=== PATIENT | female | born 1970 | race Caucasian/White ===

== ENCOUNTER 2017-12-03 23:57 | Inpatient (IN) | payer OTHER ==
[2017-12-04] MEDS ORDERED: SODIUM CHLORIDE 1,000 ML IV STA (00:20)
[2017-12-04] MEDS ORDERED: ONDANSETRON 4 MG/2 ML VIAL IVPB ONE (00:20)
[2017-12-04] MEDS ORDERED: ACETAMINOPHEN 1000 MG/100 ML VIAL (NON FORMULARY) IVPB ONE (00:20)
--- NOTE | 2017-12-04 00:27 | PDOC ---
History of Present Illness - General Chief Complaint: Pain, Acute Stated Complaint: STOMACH PAIN Time Seen by Provider: 12/04/17 00:07 - History of Present Illness Initial Comments: 12/04/17 00:22 47 F with no PMH presents to ED with abdominal pain, N+V+D x 1 day. Pt states that her symptoms began at 2PM. She reports diffuse abdominal pain. Endorses nonbloody nonbilious emesis as well as watery brown diarrhea. Denies F/C. Denies CP/SOB. Denies dysuria. Denies vaginal bleeding/discharge. Pt has had prior cholecystectomy. Past History - Past Medical History Allergies/Adverse Reactions: Allergies Allergy/AdvReac Type Severity Reaction Status Date / Time No Known Allergies Allergy Verified 12/04/17 00:15 Home Medications: Ambulatory Orders Oxycodone HCl/Acetaminophen [Percocet 5-325 mg Tablet] 1 - 2 tab PO Q6H - Surgical History Cholecystectomy: Yes - Suicide/Smoking/Psychosocial Hx Smoking Status: Yes Smoking History: Never smoked Have you smoked in the past 12 months: No Number of Cigarettes Smoked Daily: 2 Information on smoking cessation initiated: No Hx Alcohol Use: No Drug/Substance Use Hx: No Review of Systems - Review of Systems Comments:: 12/04/17 00:25 "GENERAL/CONSTITUTIONAL: No fever or chills. No weakness. HEAD, EYES, EARS, NOSE AND THROAT: No change in vision. No ear pain or discharge. No sore throat. CARDIOVASCULAR: No chest pain or shortness of breath. RESPIRATORY: No cough, wheezing, or hemoptysis. GASTROINTESTINAL: + nausea, vomiting, and diarrhea, no constipation. GENITOURINARY: No dysuria, frequency, or change in urination. MUSCULOSKELETAL: No joint or muscle swelling or pain. No neck or back pain. SKIN: No rash NEUROLOGIC: No headache, vertigo, loss of consciousness, or change in strength/ sensation. ENDOCRINE: No increased thirst. No abnormal weight change. HEMATOLOGIC/LYMPHATIC: No anemia, easy bleeding, or history of blood clots. ALLERGIC/IMMUNOLOGIC: No hives or skin allergy. " *Physical Exam - Vital Signs Last Vital Signs Temp Pulse Resp BP Pulse Ox 98.2 F 87 20 131/81 98 12/04/17 00:15 12/04/17 00:15 12/04/17 00:15 12/04/17 00:15 12/04/17 00:15 - Physical Exam Comments: 12/04/17 00:25 "GENERAL: Awake, alert, and fully oriented, in no acute distress HEAD: No signs of trauma EYES: PERRLA, EOMI, sclera anicteric, conjunctiva clear ENT: Auricles normal inspection, hearing grossly normal, nares patent, oropharynx clear without exudates. Moist mucosa NECK: Nontender, no stepoffs, Normal ROM, supple, no lymphadenopathy, JVD, or masses LUNGS: Breath sounds equal, clear to auscultation bilaterally. No wheezes, and no crackles HEART: Regular rate and rhythm, normal S1 and S2, no murmurs, rubs or gallops ABDOMEN: Soft, mild LLQ and RLQ tenderness, normoactive bowel sounds. No guarding, no rebound. No masses EXTREMITIES: Normal range of motion, no edema. No clubbing or cyanosis. No cords, erythema, or tenderness NEUROLOGICAL: Cranial nerves II through XII intact. 5/5 strength and sensation in all extremities, Normal speech, normal gait, normal cerebellar function SKIN: Warm, Dry, normal turgor, no rashes or lesions noted. " ED Treatment Course - LABORATORY CBC & Chemistry Diagram: 12/04/17 01:21 12/04/17 01:21 - RADIOLOGY Radiology Studies Ordered: Category Date Time Status ABDOMEN & PELVIS CT WITH CONTR [CT] Stat CT Scan 12/04/17 00:19 Ordered Medical Decision Making - Medical Decision Making 12/04/17 00:26 47 F with abdominal pain, N+V+D. Likely viral gastroenteritis. However, because pt had RLQ and LLQ tenderness on exam, will obtain CT to r/o appy or colitis. - Labs, UA, UPT - CTAP - IVF, zofran 12/04/17 01:54 Pt signed out to night attending at 2AM, pending labs, CT scan, and re- assessment. Case discussed in detail with oncoming Emergency Physician including history, physical exam and ancillary studies. Oncoming Emergency Physician has assumed care for the patient and will complete the evaluation and treatment. Patient is aware of the plan. *DC/Admit/Observation/Transfer Diagnosis at time of Disposition: Abdominal pain - Referrals - Patient Instructions - Post Discharge Activity - Attestations Physician Attestion: 12/04/17 01:55 I, Dr. Noel Patterson MD, attest that this document has been prepared under my direction and personally reviewed by me in its entirety. I further attest, that it accurately reflects all work, treatment, procedures and medical decision -making performed by me.
[2017-12-04] MEDS ORDERED: ACETAMINOPHEN INJECTION 100 ML IVPB ONE (01:06)
[2017-12-04] MEDS ORDERED: ONDANSETRON 4 MG/2 ML VIAL ONE (01:06)
[2017-12-04 01:32] LABS: HEMATOCRIT 43.1 % (32.4-45.2); HEMOGLOBIN 14.3 GM/dL (10.7-15.3); MCH 30.8 pg (25.7-33.7); MCHC 33.1 g/dl (32.0-36.0); MEAN PLT VOLUME 10.2 fl (7.5-11.1); PLATELET COUNT 316 K/MM3 (134-434); RBC 4.64 M/mm3 (3.60-5.2); RDW 14.2 % (11.6-15.6); WHITE BLOOD COUNT 21.1 K/mm3 (4.0-10.0)
[2017-12-04 01:48] LABS: URINE APPEARANCE CLEAR; URINE BILIRUBIN NEGATIVE (NEGATIVE); URINE BLOOD NEGATIVE (NEGATIVE); URINE COLOR YELLOW; URINE GLUCOSE (UA) NEGATIVE (NEGATIVE); URINE KETONE NEGATIVE (NEGATIVE); URINE LEUK ESTERASE NEGATIVE (NEGATIVE); URINE NITRITE NEGATIVE (NEGATIVE); URINE PROTEIN NEGATIVE (NEGATIVE); URINE UROBILINOGEN NEGATIVE mg/dL (0.2-1.0)
[2017-12-04 01:51] LABS: HCG,QUALITATIVE URINE NEGATIVE
[2017-12-04 02:54] LABS: ALK PHOS 68 U/L (45-117); ANION GAP 10 (8-16); BILIRUBIN,TOTAL 0.4 mg/dL (0.2-1.0); BLOOD UREA NITROGEN 9 mg/dL (7-18); CALCIUM 8.3 mg/dL (8.5-10.1); CHLORIDE 102 mmol/L (98-107); CO2 26 mmol/L (21-32); CREATININE 0.6 mg/dL (0.55-1.02); GLUCOSE,RANDOM 94 mg/dL (74-106); POTASSIUM 4.3 mmol/L (3.5-5.1); SGOT/AST 24 U/L (15-37); SGPT/ALT 21 U/L (12-78); SODIUM 138 mmol/L (136-145); TOT PROT 7.2 g/dl (6.4-8.2)
[2017-12-04 03:45] LABS: ACANTHOCYTES 0; ANISOCYTOSIS 0; HELMET CELLS 0; HOWELL-JOLLY BODIES 0; MACROCYTOSIS 0; OVALOCYTE 0; PLATELET ESTIMATE NORMAL; ROULEAU 0; SICKELED CELLS 0; TARGET CELLS 0; TEAR DROP CELLS 0; TOXIC GRANULATION 0
--- NOTE | 2017-12-04 04:06 | PDOC ---
*Physical Exam - Vital Signs Last Vital Signs Temp Pulse Resp BP Pulse Ox 98.2 F 87 20 131/81 98 12/04/17 00:15 12/04/17 00:15 12/04/17 00:15 12/04/17 00:15 12/04/17 00:15 <Nael Perez - Last Filed: 12/04/17 04:06> - Vital Signs Last Vital Signs Temp Pulse Resp BP Pulse Ox 98.2 F 87 20 131/81 98 12/04/17 00:15 12/04/17 00:15 12/04/17 00:15 12/04/17 00:15 12/04/17 00:15 <Vickie Macario - Last Filed: 12/04/17 05:22> Heart Score/ECG Review - ECG Intrepretation Comment:: 12/04/17 04:24 Vent Rate: 81 bpm IMPRESSION: Normal sinus rhythm. Possible left atrial enlargement. <Vickie Macario - Last Filed: 12/04/17 05:22> ED Treatment Course - LABORATORY CBC & Chemistry Diagram: 12/04/17 01:21 12/04/17 02:18 - ADDITIONAL ORDERS Additional order review: Laboratory Results 12/04/17 12/04/17 12/04/17 02:18 01:21 01:21 Sodium 138 Cancelled Potassium 4.3 Cancelled Chloride 102 Cancelled Carbon Dioxide 26 Cancelled Anion Gap 10 Cancelled BUN 9 Cancelled Creatinine 0.6 Cancelled Creat Clearance w eGFR > 60 Cancelled Random Glucose 94 Cancelled Calcium 8.3 L Cancelled Total Bilirubin 0.4 Cancelled AST 24 Cancelled ALT 21 Cancelled Alkaline Phosphatase 68 Cancelled Total Protein 7.2 Cancelled Albumin 3.0 L Cancelled Lipase 72 L Urine Color Urine Appearance Urine pH Ur Specific [place] Urine Protein Urine Glucose (UA) Urine Ketones Urine Blood Urine Nitrite Urine Bilirubin Urine Urobilinogen Ur Leukocyte Esterase Urine HCG, Qual 12/04/17 01:21 Sodium Potassium Chloride Carbon Dioxide Anion Gap BUN Creatinine Creat Clearance w eGFR Random Glucose Calcium Total Bilirubin AST ALT Alkaline Phosphatase Total Protein Albumin Lipase Urine Color Yellow Urine Appearance Clear Urine pH 5.0 Ur Specific [place] 1.025 Urine Protein Negative Urine Glucose (UA) Negative Urine Ketones Negative Urine Blood Negative Urine Nitrite Negative Urine Bilirubin Negative Urine Urobilinogen Negative Ur Leukocyte Esterase Negative Urine HCG, Qual Negative 12/04/17 01:21 RBC 4.64 MCV 93.0 MCHC 33.1 RDW 14.2 MPV 10.2 Neutrophils % No Result Required. Lymphocytes % No Result Required. - Medications Given in the ED: ED Medications Discontinued Medications Generic Name Dose Route Start Last Admin Trade Name Dong PRN Reason Stop Dose Admin Acetaminophen 1,000 mg 12/04/17 00:20 12/04/17 01:42 Ofirmev Injection - IVPB 12/04/17 00:21 1,000 mg ONCE ONE Administration Sodium Chloride 1,000 mls @ 1,000 mls/hr 12/04/17 00:20 12/04/17 01:41 Normal Saline - IV 12/04/17 01:19 1,000 mls/hr ASDIR STA Administration Ondansetron HCl 4 mg 12/04/17 00:20 12/04/17 01:42 Zofran Injection IVPB 12/04/17 00:21 4 mg ONCE ONE Administration <Nael Perez - Last Filed: 12/04/17 04:06> - LABORATORY CBC & Chemistry Diagram: 12/04/17 01:21 12/04/17 02:18 - ADDITIONAL ORDERS Additional order review: Laboratory Results 12/04/17 12/04/17 12/04/17 02:18 01:21 01:21 Sodium 138 Cancelled Potassium 4.3 Cancelled Chloride 102 Cancelled Carbon Dioxide 26 Cancelled Anion Gap 10 Cancelled BUN 9 Cancelled Creatinine 0.6 Cancelled Creat Clearance w eGFR > 60 Cancelled Random Glucose 94 Cancelled Calcium 8.3 L Cancelled Total Bilirubin 0.4 Cancelled AST 24 Cancelled ALT 21 Cancelled Alkaline Phosphatase 68 Cancelled Total Protein 7.2 Cancelled Albumin 3.0 L Cancelled Lipase 72 L Urine Color Urine Appearance Urine pH Ur Specific [place] Urine Protein Urine Glucose (UA) Urine Ketones Urine Blood Urine Nitrite Urine Bilirubin Urine Urobilinogen Ur Leukocyte Esterase Urine HCG, Qual 12/04/17 01:21 Sodium Potassium Chloride Carbon Dioxide Anion Gap BUN Creatinine Creat Clearance w eGFR Random Glucose Calcium Total Bilirubin AST ALT Alkaline Phosphatase Total Protein Albumin Lipase Urine Color Yellow Urine Appearance Clear Urine pH 5.0 Ur Specific [place] 1.025 Urine Protein Negative Urine Glucose (UA) Negative Urine Ketones Negative Urine Blood Negative Urine Nitrite Negative Urine Bilirubin Negative Urine Urobilinogen Negative Ur Leukocyte Esterase Negative Urine HCG, Qual Negative 12/04/17 01:21 RBC 4.64 MCV 93.0 MCHC 33.1 RDW 14.2 MPV 10.2 Neutrophils % No Result Required. Lymphocytes % No Result Required. - RADIOLOGY Radiograph Interpretation: 12/04/17 04:25 EXAM: CT Abdomen and Pelvis INTERPRETED BY: Dr. Jordan REVIEWED BY: Dr. Perez IMPRESSION: Lung bases are clear. The visualized cardiac chambers are normal size and configuration. Status post cholecystectomy without biliary duct dilation. Normal liver, pancreas, spleen, adrenal glands and kidneys. The stomach and abdominal small and large bowel are normal. There is no aortic aneurysm. There is no significant retroperitoneal lymphadenopathy. The pelvic small and large bowel are normal. The appendix is borderline dilated at 8 mm there may be mild periappendiceal inflammation . Findings are suspicious for early acute appendicitis. No abscess or free air. Status post hysterectomy. Urinary bladder is unremarkable. There is minimal pelvic free fluid. No discrete pelvic lymphadenopathy is identified. Status post lumbar fusion. SUMMARY: Suspected early acute appendicitis. - Medications Given in the ED: ED Medications Discontinued Medications Generic Name Dose Route Start Last Admin Trade Name Freq PRN Reason Stop Dose Admin Acetaminophen 1,000 mg 12/04/17 00:20 12/04/17 01:42 Ofirmev Injection - IVPB 12/04/17 00:21 1,000 mg ONCE ONE Administration Sodium Chloride 1,000 mls @ 1,000 mls/hr 12/04/17 00:20 12/04/17 01:41 Normal Saline - IV 12/04/17 01:19 1,000 mls/hr ASDIR STA Administration Ondansetron HCl 4 mg 12/04/17 00:20 12/04/17 01:42 Zofran Injection IVPB 12/04/17 00:21 4 mg ONCE ONE Administration <Vickie Macario - Last Filed: 12/04/17 05:22> *DC/Admit/Observation/Transfer - Discharge Dispostion Admit: Yes <Nael Perez - Last Filed: 12/04/17 04:06> - Attestations Scribe Attestion: 12/04/17 04:27 Documentation prepared by Vickie Macario, acting as medical supply technician for Nael Perez DO. <Vickie Macario - Last Filed: 12/04/17 05:22> Diagnosis at time of Disposition: Abdominal pain, Acute appendicitis - Discharge Dispostion Condition at time of disposition: Stable
--- NOTE | 2017-12-04 04:56 | HP ---
CHIEF COMPLAINT: Abdominal pain x1 day PCP: HISTORY OF PRESENT ILLNESS: 47 yo F with no significant PMHx presenting with 1 day hx of generalized 7/10 abdominal pain worse in the lower abdomen. The pain is intermittent, associated with intermittent fullness. There is associated loss of appetite and nausea, but no vomiting. The pain is reproducible on palpation. There are chills, but no fevers. Pt had several episodes of loose brown non bloody diarrhea today. No dysuria, cough, chest pain. Pt had a similar episode of generalized abdominal pain about 2 weeks ago associated with nausea, vomiting and diarrhea that resolved on its own. ER course was notable for: (1) WBC-21.1, UA-negative, lipase -72 (2) Iv NS 1L, zofran, iv tylenol, metronidazole, levoflox (3) CBC, CMP, (4) CTabd- suspected early acute appendicitis (5) EKG- Normal sinus rhythm, 81bpm, QTc-443 (6) CXR- no acute pathology Recent Travel: No PAST MEDICAL HISTORY: PAST SURGICAL HISTORY: Rampart plates in anterior and posterior cervical area (on percocet) Cholecystectomy Social History: Smoking: Occasional- 6cigs/day Alcohol:Social Drugs: Never Family History: Father prostate cancer Breast cancer -Grandmother Allergies No Known Allergies Allergy (Verified 12/04/17 00:15) HOME MEDICATIONS: Home Medications Medication Instructions Recorded Oxycodone HCl/Acetaminophen 1 - 2 tab PO Q6H 04/06/16 [Percocet 5-325 mg Tablet] REVIEW OF SYSTEMS CONSTITUTIONAL: Absent: fever, chills, diaphoresis, generalized weakness, malaise, loss of appetite, weight change HEENT: Absent: rhinorrhea, nasal congestion, throat pain, throat swelling, difficulty swallowing, mouth swelling, ear pain, eye pain, visual changes CARDIOVASCULAR: Absent: chest pain, syncope, palpitations, irregular heart rate, lightheadedness , peripheral edema RESPIRATORY: Absent: cough, shortness of breath, dyspnea with exertion, orthopnea, wheezing, stridor, hemoptysis GASTROINTESTINAL: abdominal pain+,nausea+, diarrhea+ Absent: abdominal distension, vomiting, constipation, melena, hematochezia GENITOURINARY: Absent: dysuria, frequency, urgency, hesitancy, hematuria, flank pain, genital pain MUSCULOSKELETAL: Absent: myalgia, arthralgia, joint swelling, back pain, neck pain SKIN: Absent: rash, itching, pallor HEMATOLOGIC/IMMUNOLOGIC: Absent: easy bleeding, easy bruising, lymphadenopathy, frequent infections ENDOCRINE: Absent: unexplained weight gain, unexplained weight loss, heat intolerance, cold intolerance NEUROLOGIC: Absent: headache, focal weakness or paresthesias, dizziness, unsteady gait, seizure, mental status changes, bladder or bowel incontinence PSYCHIATRIC: Absent: anxiety, depression, suicidal or homicidal ideation, hallucinations. PHYSICAL EXAMINATION Vital Signs - 24 hr 12/04/17 00:15 Temperature 98.2 F Pulse Rate 87 Respiratory 20 Rate Blood Pressure 131/81 O2 Sat by Pulse 98 Oximetry (%) GENERAL: Awake, alert, and fully oriented, in no acute distress. HEAD: Normal with no signs of trauma. EYES: Pupils equal, round and reactive to light, extraocular movements intact, sclera anicteric, conjunctiva clear. EARS, NOSE, THROAT: oropharynx clear without exudates. Moist mucous membranes. NECK: Anterior neck surgical scar. Normal range of motion, supple without lymphadenopathy, JVD, or masses. LUNGS: Breath sounds equal, clear to auscultation bilaterally. No wheezes, and no crackles. HEART: Regular rate and rhythm, normal S1 and S2 without murmur, rub or gallop. ABDOMEN: Soft,tender lower abdomen, worse in LLQ. Absent rebound tenderness. Absent obturator sign. Not distended, bowel sounds+, no guarding, no rebound, no masses. MUSCULOSKELETAL: Normal range of motion at all joints. No bony deformities or tenderness. No CVA tenderness. UPPER EXTREMITIES: 2+ pulses, warm, well-perfused. No cyanosis. No clubbing. No peripheral edema. LOWER EXTREMITIES: 2+ pulses, warm, well-perfused. No calf tenderness. No peripheral edema. NEUROLOGICAL: Cranial nerves II-XII intact. Normal speech. Gait not observed PSYCHIATRIC: Cooperative. Good eye contact. Appropriate mood and affect. Laboratory Results - last 24 hr 12/04/17 12/04/17 12/04/17 01:21 01:21 01:21 WBC 21.1 H RBC 4.64 Hgb 14.3 Hct 43.1 MCV 93.0 MCH 30.8 MCHC 33.1 RDW 14.2 Plt Count 316 MPV 10.2 Neutrophils % No Result Required. Neutrophils % (Manual) 66.0 Band Neutrophils % 4.0 Lymphocytes % No Result Required. Lymphocytes % (Manual) 23.0 Monocytes % (Manual) 2 L Eosinophils % (Manual) 0.0 Basophils % (Manual) 0.0 Myelocytes % (Man) 0 Promyelocytes % (Man) 0 Nucleated RBC % 0 Metamyelocytes 0 Hypochromia 0 Toxic Granulation 0 Dohle Bodies 0 Platelet Estimate Normal Platelet Comment No clumping noted Polychromasia 0 Poikilocytosis 0 Basophilic Stippling 0 Anisocytosis 0 Microcytosis 0 Macrocytosis 0 Spherocytes 0 Sickle Cells 0 Target Cells 0 Tear Drop Cells 0 Ovalocytes 0 Stomatocytes 0 Helmet Cells 0 [place] Bodies 0 [place] Rings 0 [place] Cells 0 Acanthocytes (Spur) 0 Rouleaux 0 Fragmented RBCs 0 Schistocytes 0 Sodium Cancelled Potassium Cancelled Chloride Cancelled Carbon Dioxide Cancelled Anion Gap Cancelled BUN Cancelled Creatinine Cancelled Creat Clearance w eGFR Cancelled Random Glucose Cancelled Calcium Cancelled Total Bilirubin Cancelled AST Cancelled ALT Cancelled Alkaline Phosphatase Cancelled Total Protein Cancelled Albumin Cancelled Lipase Urine Color Yellow Urine Appearance Clear Urine pH 5.0 Ur Specific [place] 1.025 Urine Protein Negative Urine Glucose (UA) Negative Urine Ketones Negative Urine Blood Negative Urine Nitrite Negative Urine Bilirubin Negative Urine Urobilinogen Negative Ur Leukocyte Esterase Negative Urine HCG, Qual Negative 12/04/17 12/04/17 01:21 02:18 WBC RBC Hgb Hct MCV MCH MCHC RDW Plt Count MPV Neutrophils % Neutrophils % (Manual) Band Neutrophils % Lymphocytes % Lymphocytes % (Manual) Monocytes % (Manual) Eosinophils % (Manual) Basophils % (Manual) Myelocytes % (Man) Promyelocytes % (Man) Nucleated RBC % Metamyelocytes Hypochromia Toxic Granulation Dohle Bodies Platelet Estimate Platelet Comment Polychromasia Poikilocytosis Basophilic Stippling Anisocytosis Microcytosis Macrocytosis Spherocytes Sickle Cells Target Cells Tear Drop Cells Ovalocytes Stomatocytes Helmet Cells [place] Bodies [place] Rings [place] Cells Acanthocytes (Spur) Rouleaux Fragmented RBCs Schistocytes Sodium 138 Potassium 4.3 Chloride 102 Carbon Dioxide 26 Anion Gap 10 BUN 9 Creatinine 0.6 Creat Clearance w eGFR > 60 Random Glucose 94 Calcium 8.3 L Total Bilirubin 0.4 AST 24 ALT 21 Alkaline Phosphatase 68 Total Protein 7.2 Albumin 3.0 L Lipase 72 L Urine Color Urine Appearance Urine pH Ur Specific [place] Urine Protein Urine Glucose (UA) Urine Ketones Urine Blood Urine Nitrite Urine Bilirubin Urine Urobilinogen Ur Leukocyte Esterase Urine HCG, Qual ASSESSMENT/PLAN: 47 yo F with PSHx of cholecystectomy and cervical [place] implants presenting with 1 day hx of generalized 7/10 abdominal pain worse in the lower abdomen found on CT to have early acute appendicitis. Acute appendicitis Lower abd pain> LLQ WBC- 21.1 CT abdomen- finding of acute appendicitis EKG- normal Type and screen Surgical consult- Dr Schmidt Iv NS- 1L - given in ED Cont IV Normal saline @150/hr Pain mx- Iv morphine 2mg Q6H Received iv tylenol in ED Iv levoflox 500mg in ED Cont iv levoflox 750mg Q24H Iv metronidazole 500mg - given in ED Continue IV Metronidazole 500mg Q8H Zofran 4mg given in ED Cont Zofran 4mg NPO Coags CXR- no acute pathology Urine and stool culture pending UA-ve FEN: Cont iv NS monitor lytes and replete as needed NPO PPx: Hold heparin - for Sx SCDs Dispo: Med surg Visit type - Emergency Visit Emergency Visit: Yes ED Registration Date: 12/04/17 Care time: The patient presented to the Emergency Department on the above date and was hospitalized for further evaluation of their emergent condition. - New Patient This patient is new to me today: Yes Date on this admission: 12/04/17 - Critical Care Critical Care patient: No Hospitalist Screening - Colonoscopy Questionnaire Colonoscopy Questionnaire: Colonoscopy Questionnaire - Patient: 50 - 75 years old and never had a screening colonoscopy: No History of colon or rectal polyps, or CA: No History of IBD, Crohn's disease or UC: No History of abdominal radiation therapy as a child: No - Relative: 1 with colon or rectal CA, or polyps at age 60 or younger: No Colon or rectal CA diagnosed at age 45 or younger: No Multiple relatives with colon or rectal CA: No - Outcome: Screening Result: Negative Screen
--- NOTE | 2017-12-04 05:02 | PN ---
Teaching Attending Note Name of Resident: Monika Shannon Moraes ATTENDING PHYSICIAN STATEMENT I saw and evaluated the patient. I reviewed the resident's note and discussed the case with the resident. I agree with the resident's findings and plan as documented. SUBJECTIVE: OBJECTIVE: Vital Signs Period Temp Pulse Resp BP Sys/Cruz Pulse Ox Last 24 Hr 98.2 F 87 20 131/81 98 Laboratory Results - last 24 hr 12/04/17 12/04/17 12/04/17 01:21 01:21 01:21 WBC 21.1 H RBC 4.64 Hgb 14.3 Hct 43.1 MCV 93.0 MCH 30.8 MCHC 33.1 RDW 14.2 Plt Count 316 MPV 10.2 Neutrophils % No Result Required. Neutrophils % (Manual) 66.0 Band Neutrophils % 4.0 Lymphocytes % No Result Required. Lymphocytes % (Manual) 23.0 Monocytes % (Manual) 2 L Eosinophils % (Manual) 0.0 Basophils % (Manual) 0.0 Myelocytes % (Man) 0 Promyelocytes % (Man) 0 Nucleated RBC % 0 Metamyelocytes 0 Hypochromia 0 Toxic Granulation 0 Dohle Bodies 0 Platelet Estimate Normal Platelet Comment No clumping noted Polychromasia 0 Poikilocytosis 0 Basophilic Stippling 0 Anisocytosis 0 Microcytosis 0 Macrocytosis 0 Spherocytes 0 Sickle Cells 0 Target Cells 0 Tear Drop Cells 0 Ovalocytes 0 Stomatocytes 0 Helmet Cells 0 [place] Bodies 0 [place] Rings 0 [place] Cells 0 Acanthocytes (Spur) 0 Rouleaux 0 Fragmented RBCs 0 Schistocytes 0 Sodium Cancelled Potassium Cancelled Chloride Cancelled Carbon Dioxide Cancelled Anion Gap Cancelled BUN Cancelled Creatinine Cancelled Creat Clearance w eGFR Cancelled Random Glucose Cancelled Calcium Cancelled Total Bilirubin Cancelled AST Cancelled ALT Cancelled Alkaline Phosphatase Cancelled Total Protein Cancelled Albumin Cancelled Lipase Urine Color Yellow Urine Appearance Clear Urine pH 5.0 Ur Specific [place] 1.025 Urine Protein Negative Urine Glucose (UA) Negative Urine Ketones Negative Urine Blood Negative Urine Nitrite Negative Urine Bilirubin Negative Urine Urobilinogen Negative Ur Leukocyte Esterase Negative Urine HCG, Qual Negative 12/04/17 12/04/17 01:21 02:18 WBC RBC Hgb Hct MCV MCH MCHC RDW Plt Count MPV Neutrophils % Neutrophils % (Manual) Band Neutrophils % Lymphocytes % Lymphocytes % (Manual) Monocytes % (Manual) Eosinophils % (Manual) Basophils % (Manual) Myelocytes % (Man) Promyelocytes % (Man) Nucleated RBC % Metamyelocytes Hypochromia Toxic Granulation Dohle Bodies Platelet Estimate Platelet Comment Polychromasia Poikilocytosis Basophilic Stippling Anisocytosis Microcytosis Macrocytosis Spherocytes Sickle Cells Target Cells Tear Drop Cells Ovalocytes Stomatocytes Helmet Cells [place] Bodies [place] Rings [place] Cells Acanthocytes (Spur) Rouleaux Fragmented RBCs Schistocytes Sodium 138 Potassium 4.3 Chloride 102 Carbon Dioxide 26 Anion Gap 10 BUN 9 Creatinine 0.6 Creat Clearance w eGFR > 60 Random Glucose 94 Calcium 8.3 L Total Bilirubin 0.4 AST 24 ALT 21 Alkaline Phosphatase 68 Total Protein 7.2 Albumin 3.0 L Lipase 72 L Urine Color Urine Appearance Urine pH Ur Specific [place] Urine Protein Urine Glucose (UA) Urine Ketones Urine Blood Urine Nitrite Urine Bilirubin Urine Urobilinogen Ur Leukocyte Esterase Urine HCG, Qual Home Medications Medication Instructions Recorded Oxycodone HCl/Acetaminophen 1 - 2 tab PO Q6H 04/06/16 [Percocet 5-325 mg Tablet] ASSESSMENT AND PLAN:
[2017-12-04] MEDS ORDERED: morphine CARPU-JECT 4 MG/1 ML DISP.SYRIN IVPUSH PRN (05:19)
[2017-12-04] MEDS ORDERED: morphine SULFATE 4 MG/ML VIAL IVPUSH PRN ×2 (05:21→15:57)
[2017-12-04] MEDS ORDERED: ONDANSETRON 4 MG/2 ML VIAL IVPUSH PRN ×2 (05:21→16:12)
[2017-12-04] MEDS ORDERED: SODIUM CHLORIDE 1,000 ML IV SCH (05:30)
[2017-12-04 07:23] VITALS: BMI 33.2
[2017-12-04 08:18] LABS: BASO % 0.3 % (0-2.0); EOS % 0.7 % (0-4.5); HEMATOCRIT 37.9 % (32.4-45.2); HEMOGLOBIN 12.4 GM/dL (10.7-15.3); LYMPH % 22.5 % (8-40); MCH 30.4 pg (25.7-33.7); MCHC 32.8 g/dl (32.0-36.0); MEAN CELL VOLUME 92.8 fl (80-96); MEAN PLT VOLUME 10.3 fl (7.5-11.1); MONO % 4.9 % (3.8-10.2); NEUT % 71.6 % (42.8-82.8); PLATELET COUNT 308 K/MM3 (134-434); RBC 4.08 M/mm3 (3.60-5.2); RDW 13.6 % (11.6-15.6); WHITE BLOOD COUNT 18.3 K/mm3 (4.0-10.0)
[2017-12-04 08:41] LABS: PROTHROMBIN TIME (PATIENT) 11.3 SEC (9.98-11.88)
[2017-12-04 08:44] LABS: ACTIVATED PTT 29.6 SECONDS (26.9-34.4)
[2017-12-04 08:46] LABS: CHLORIDE 100 mmol/L (98-107); SODIUM 136 mmol/L (136-145)
[2017-12-04 09:20] LABS: ALBUMIN 2.8 g/dl (3.4-5.0); ALK PHOS 71 U/L (45-117); ANION GAP 13 (8-16); BILIRUBIN,TOTAL 0.9 mg/dL (0.2-1.0); BLOOD UREA NITROGEN 6 mg/dL (7-18); CALCIUM 8.3 mg/dL (8.5-10.1); CO2 23 mmol/L (21-32); CREATININE 0.5 mg/dL (0.55-1.02); GLUCOSE,RANDOM 87 mg/dL (74-106); MAGNESIUM 2.1 mg/dL (1.8-2.4); SGOT/AST 48 U/L (15-37); SGPT/ALT 32 U/L (12-78); TOT PROT 6.7 g/dl (6.4-8.2)
--- NOTE | 2017-12-04 09:32 | EKG ---
Test Reason : Blood Pressure : / mmHG Vent. Rate : 081 BPM Atrial Rate : 081 BPM P-R Int : 138 ms QRS Dur : 078 ms QT Int : 382 ms P-R-T Axes : 060 024 023 degrees QTc Int : 443 ms NORMAL SINUS RHYTHM POSSIBLE LEFT ATRIAL ENLARGEMENT NONSPECIFIC ST AND T WAVE ABNORMALITY NO PREVIOUS ECGS AVAILABLE Confirmed by LISSET PATEL MD ([id number]) on 12/04/2017 9:32:40 AM Referred By: Confirmed By:LISSET PATEL MD
--- NOTE | 2017-12-04 09:37 | CONSULT ---
Consult Consult Specialty:: general surgery Referred by:: shadi Reason for Consultation:: appendicitis - History of Present Illness Chief Complaint: abdominal pain History of Present Illness: 47 yo female no significant PMH presenting with 1 day hx of 7/10 abdominal pain worse in the lower abdomen. The pain is intermittent, associated with intermittent fullness. There is associated loss of appetite and nausea, but no vomiting. The pain is reproducible on palpation. There are chills, but no fevers. Pt had several episodes of loose brown non bloody diarrhea today. No dysuria, cough, chest pain. Patient had a similar episode of generalized abdominal pain about 2 weeks ago associated with nausea, vomiting and diarrhea that resolved on its own. we were asked to assess - History Source History Provided By: Patient, Medical Record Limitations to Obtaining History: No Limitations - Past Medical History ...: No - Past Surgical History Additional Surgical History: abdominoplasty, lumbar and cervical fusions - Alcohol/Substance Use Hx Alcohol Use: No - Smoking History Smoking history: Never smoked Have you smoked in the past 12 months: No Aproximately how many cigarettes per day: 2 - Social History Place of : Other ([facility]) History of Recent Travel: Yes Home Medications - Allergies Allergies/Adverse Reactions: Allergies Allergy/AdvReac Type Severity Reaction Status Date / Time No Known Allergies Allergy Verified 12/04/17 00:15 - Home Medications Home Medications: Ambulatory Orders Oxycodone HCl/Acetaminophen [Percocet 5-325 mg Tablet] 1 - 2 tab PO Q6H Review of Systems - Review of Systems Constitutional: reports: Fever. denies: Chills Eyes: denies: Blind Spots, Recent Change in Vision HENT: denies: No Symptoms, Difficult Swallowing, Ear Discharge, Ear Pain, Epistaxis, Gingival Bleeding, Hearing Loss, Mouth Swelling, Nasal Congestion, Ocular Prosthesis, Throat Pain, Toothache, Ringing in Ears, Other Neck: reports: Decreased ROM, Pain on Movement Cardiovascular: denies: No Symptoms, Chest Pain, Edema, Palpitations, Shortness of Breath, Other Respiratory: denies: No Symptoms, Cough, Exercise Intolerance, Hemoptysis, Orthopnea, PND, Snoring, SOB, SOB on Exertion, Wheezing, Other Genitourinary: denies: No Symptoms, Burning, Discharge, Dysuria, Flank Pain, Frequency, Hematuria, Incontinence, Lesions, Menses, Pain, Testicular Mass, Testicular Pain, Testicular Swelling, Urgency, Vaginal Bleeding, Other Musculoskeletal: denies: No Symptoms, Back Pain, Crepitus, Decreased ROM, Extremity Pain, Joint Pain, Joint Swelling, Muscle Pain, Muscle Cramps, Muscle Weakness, Other Integumentary: denies: No Symptoms, Blister, Bruising, Change in Color, Eczema, Erythema, Incision, Lesions, Lump, Pallor, Pruritis, Rash, Wound, Other Neurological: denies: Headache, Seizure, Syncope Endocrine: denies: No Symptoms, Excessive Sweating, Flushing, Increased Hunger, Increased Thirst, Intolerance to Cold, Intolerance to Heat, Unexplained Weight Gain, Unexplained Weight Loss, Other Hematology/Lymphatic: denies: No Symptoms, Easily Bruised, Excessive Bleeding, Swollen Glands, Other Psychiatric: denies: Anxiety, Depression Physical Exam Vital Signs: Vital Signs Temperature 98.4 F 12/04/17 08:33 Pulse Rate 77 12/04/17 08:33 Respiratory Rate 18 12/04/17 08:33 Blood Pressure 127/75 12/04/17 08:33 O2 Sat by Pulse Oximetry (%) 98 12/04/17 06:00 Vital Signs Period Temp Pulse Resp BP Sys/Cruz Pulse Ox Last 24 Hr 98.2 F-99.2 F 72-87 18-20 127-138/68-81 98-98 Constitutional: Yes: No Distress, Calm Eyes: Yes: Conjunctiva Clear, EOM Intact HENT: Yes: Atraumatic, Normocephalic Neck: Yes: Supple, Trachea Midline Cardiovascular: Yes: Regular Rate and Rhythm, S1, S2. No: Murmur Respiratory: Yes: Regular, CTA Bilaterally Gastrointestinal: Yes: Normal Bowel Sounds, Soft, Abdomen, Obese, Tenderness ( RLQ) ...Rectal Exam: Yes: Deferred Renal/: No: CVA Tenderness - Left, CVA Tenderness - Right Extremities: No: Cool, Cyanosis Edema: No Peripheral Pulses WNL: Yes Wound/Incision: Yes: Clean/Dry, Well Approximated Neurological: Yes: Alert, Oriented Psychiatric: Yes: Alert, Oriented Labs: CBC, BMP 12/04/17 07:25 12/04/17 07:25 Imaging - Results Cat Scan: Report Reviewed, Image Reviewed (inflamed appendix) Problem List - Problems (1) Acute appendicitis Assessment/Plan: 47 yo female with acute appendicitis NPO and IVF hydration IV antibiiotics OR this afternoon Discussed with patient risks, benefits and alternatives of laparoscopic possible open appendectomy, including but not limited to bleeding, infection, injury to adjacent structures, leak or injury, intraabdominal abscess, need for further procedures, ; alternatives include antibiotics, delayed or no surgery - risks of this include failure of nonoperative therapy, perforation, sepsis, recurrence, . Patient desires to proceed with operation - will take to OR for above. Informed consent signed for same. Thank you for the opportunity to participate in the care of this patient. Code(s): K35.80 - UNSPECIFIED ACUTE APPENDICITIS (2) Abdominal pain Code(s): R10.9 - UNSPECIFIED ABDOMINAL PAIN (3) Back pain Code(s): M54.9 - DORSALGIA, UNSPECIFIED Qualifiers: Back pain location: back pain in unspecified location Chronicity: acute Back pain laterality: left Qualified Code(s): M54.9 - Dorsalgia, unspecified
[2017-12-04] MEDS ORDERED: fentaNYL CITRATE 250 MCG/5 ML VIAL ONE (13:51)
[2017-12-04] MEDS ORDERED: ROCURONIUM BROMIDE 50 MG/5 ML VIAL ONE (13:51)
[2017-12-04] MEDS ORDERED: LIDOCAINE HCL/PF 2% SDV 5ML VIAL ONE (13:51)
[2017-12-04] MEDS ORDERED: SUCCINYLCHOLINE CHLORIDE 200 MG/10 ML VIAL ONE (13:52)
[2017-12-04] MEDS ORDERED: MIDAZOLAM HCL 2 MG/2 ML SINGLE DOSE VIAL ONE (14:02)
--- NOTE | 2017-12-04 14:41 | PN ---
Teaching Attending Note Name of Resident: Arron Hubbard ATTENDING PHYSICIAN STATEMENT I saw and evaluated the patient. I reviewed the resident's note and discussed the case with the resident. I agree with the resident's findings and plan as documented. SUBJECTIVE:seen at 10 am abd pain, no N/V, no fever or chills., has no diarrhea . OBJECTIVE: NAD, old surgical scar on L anterior neck CV: RRR Lungs: CTAB ext: no edema Abd: soft, TTP in al quadrants annika RLQ . + McBurny sign , + Psoas , + obturator sign . nl BS. old sugical scars. hyperpigmentation in lower abd A/P: 47 y/o lady with h/o neck surgery and CCY who presented with acute abd pain and was found to have acute appendicitis. 1- Acute appendicitis : - IVF - Iv abx flagyl and levaquin - NPO - for OR today . zofran and pain management Possible dc after sx or AM depending on complications, and if Ok with Sx
[2017-12-04] MEDS: HYDROmorphone HCL CARPU-JECT 4 MG/1 ML DISP.SYRIN IVPUSH PRN ×4 (15:19→15:49)
[2017-12-04] MEDS ORDERED: HYDROmorphone HCL CARPU-JECT 4 MG/1 ML DISP.SYRIN ONE (15:24)
--- NOTE | 2017-12-04 15:44 | OP ---
Operative Note - Note: Operative Date: 12/04/17 Pre-Operative Diagnosis: acute appendicitis Operation: laparoscopic appendectomy Findings: inflammed appendix with creeping fat Implants: none Surgeon: Khris Schmidt Anesthesiologist/[employer] OFFICER: Arron Martin Anesthesia: General, Local (0.5% marcaine 10ml) Estimated Blood Loss (mls): 10 Drains, Volume Out (mls): 200 (nava) Fluid Volume Replaced (mls): 400 Operative Report Dictated: Yes
[2017-12-04] MEDS ORDERED: IBUPROFEN 600 MG TABLET (FP) PO PRN ×2 (15:59→16:08)
[2017-12-04] MEDS ORDERED: ACETAMINOPHEN 325 MG TABLET (FP) PO PRN (16:07)
[2017-12-04] MEDS ORDERED: morphine CARPU-JECT 2 MG/1 ML DISP.SYRIN IVPUSH PRN (16:12)
--- NOTE | 2017-12-04 16:22 | PN ---
Physical Exam: SUBJECTIVE: Patient seen and examined at bedside. states that she has pain in the RLQ and LLQ. Denies fevers or chills, nausea, vomiting, chest pain SOB. OBJECTIVE: Vital Signs Period Temp Pulse Resp BP Sys/Cruz Pulse Ox Last 24 Hr 98.2 F-99.2 F 72-92 16-20 117-138/54-81 96-98 GENERAL: The patient is awake, alert, and fully oriented, in no acute distress. LUNGS: CTA HEART: RRR no murmurs ABDOMEN: Obese, Soft, tender to palpation in the RLQ, LLQ. BS present. Rosvings sign, obturator sign positive. EXTREMITIES: 2+ pulses, warm, well-perfused, no edema. NEUROLOGICAL: Cranial nerves II through XII grossly intact. Normal speech, gait not observed. PSYCH: Normal mood, normal affect. SKIN: Warm, dry, normal turgor, no rashes or lesions noted Laboratory Results - last 24 hr 12/04/17 12/04/17 12/04/17 01:21 01:21 01:21 WBC 21.1 H RBC 4.64 Hgb 14.3 Hct 43.1 MCV 93.0 MCH 30.8 MCHC 33.1 RDW 14.2 Plt Count 316 MPV 10.2 Neutrophils % No Result Required. Neutrophils % (Manual) 66.0 Band Neutrophils % 4.0 Lymphocytes % No Result Required. Lymphocytes % (Manual) 23.0 Monocytes % Monocytes % (Manual) 2 L Eosinophils % Eosinophils % (Manual) 0.0 Basophils % Basophils % (Manual) 0.0 Myelocytes % (Man) 0 Promyelocytes % (Man) 0 Nucleated RBC % 0 Metamyelocytes 0 Hypochromia 0 Toxic Granulation 0 Dohle Bodies 0 Platelet Estimate Normal Platelet Comment No clumping noted Polychromasia 0 Poikilocytosis 0 Basophilic Stippling 0 Anisocytosis 0 Microcytosis 0 Macrocytosis 0 Spherocytes 0 Sickle Cells 0 Target Cells 0 Tear Drop Cells 0 Ovalocytes 0 Stomatocytes 0 Helmet Cells 0 [place] Bodies 0 [place] Rings 0 Azucena Cells 0 Acanthocytes (Spur) 0 Rouleaux 0 Fragmented RBCs 0 Schistocytes 0 PT with INR INR PTT (Actin FS) Sodium Cancelled Potassium Cancelled Chloride Cancelled Carbon Dioxide Cancelled Anion Gap Cancelled BUN Cancelled Creatinine Cancelled Creat Clearance w eGFR Cancelled Random Glucose Cancelled Calcium Cancelled Phosphorus Magnesium Total Bilirubin Cancelled AST Cancelled ALT Cancelled Alkaline Phosphatase Cancelled Total Protein Cancelled Albumin Cancelled Lipase Urine Color Yellow Urine Appearance Clear Urine pH 5.0 Ur Specific [place] 1.025 Urine Protein Negative Urine Glucose (UA) Negative Urine Ketones Negative Urine Blood Negative Urine Nitrite Negative Urine Bilirubin Negative Urine Urobilinogen Negative Ur Leukocyte Esterase Negative Urine HCG, Qual Negative 12/04/17 12/04/17 12/04/17 01:21 02:18 07:25 WBC RBC Hgb Hct MCV MCH MCHC RDW Plt Count MPV Neutrophils % Neutrophils % (Manual) Band Neutrophils % Lymphocytes % Lymphocytes % (Manual) Monocytes % Monocytes % (Manual) Eosinophils % Eosinophils % (Manual) Basophils % Basophils % (Manual) Myelocytes % (Man) Promyelocytes % (Man) Nucleated RBC % Metamyelocytes Hypochromia Toxic Granulation Dohle Bodies Platelet Estimate Platelet Comment Polychromasia Poikilocytosis Basophilic Stippling Anisocytosis Microcytosis Macrocytosis Spherocytes Sickle Cells Target Cells Tear Drop Cells Ovalocytes Stomatocytes Helmet Cells [place] Bodies [place] Rings Azucena Cells Acanthocytes (Spur) Rouleaux Fragmented RBCs Schistocytes PT with INR 11.30 INR 1.00 PTT (Actin FS) 29.6 Sodium 138 Potassium 4.3 Chloride 102 Carbon Dioxide 26 Anion Gap 10 BUN 9 Creatinine 0.6 Creat Clearance w eGFR > 60 Random Glucose 94 Calcium 8.3 L Phosphorus Magnesium Total Bilirubin 0.4 AST 24 ALT 21 Alkaline Phosphatase 68 Total Protein 7.2 Albumin 3.0 L Lipase 72 L Urine Color Urine Appearance Urine pH Ur Specific [place] Urine Protein Urine Glucose (UA) Urine Ketones Urine Blood Urine Nitrite Urine Bilirubin Urine Urobilinogen Ur Leukocyte Esterase Urine HCG, Qual 12/04/17 12/04/17 07:25 07:25 WBC 18.3 H RBC 4.08 Hgb 12.4 D Hct 37.9 MCV 92.8 MCH 30.4 MCHC 32.8 RDW 13.6 Plt Count 308 MPV 10.3 Neutrophils % 71.6 Neutrophils % (Manual) Band Neutrophils % Lymphocytes % 22.5 Lymphocytes % (Manual) Monocytes % 4.9 Monocytes % (Manual) Eosinophils % 0.7 Eosinophils % (Manual) Basophils % 0.3 Basophils % (Manual) Myelocytes % (Man) Promyelocytes % (Man) Nucleated RBC % Metamyelocytes Hypochromia Toxic Granulation Dohle Bodies Platelet Estimate Platelet Comment Polychromasia Poikilocytosis Basophilic Stippling Anisocytosis Microcytosis Macrocytosis Spherocytes Sickle Cells Target Cells Tear Drop Cells Ovalocytes Stomatocytes Helmet Cells [place] Bodies [place] Rings Azucena Cells Acanthocytes (Spur) Rouleaux Fragmented RBCs Schistocytes PT with INR INR PTT (Actin FS) Sodium 136 Potassium 4.0 Chloride 100 Carbon Dioxide 23 Anion Gap 13 BUN 6 L Creatinine 0.5 L Creat Clearance w eGFR > 60 Random Glucose 87 Calcium 8.3 L Phosphorus 3.0 Magnesium 2.1 Total Bilirubin 0.9 D AST 48 H ALT 32 Alkaline Phosphatase 71 Total Protein 6.7 Albumin 2.8 L Lipase Urine Color Urine Appearance Urine pH Ur Specific [place] Urine Protein Urine Glucose (UA) Urine Ketones Urine Blood Urine Nitrite Urine Bilirubin Urine Urobilinogen Ur Leukocyte Esterase Urine HCG, Qual Active Medications Generic Name Dose Route Start Last Admin Trade Name Freq PRN Reason Stop Dose Admin Acetaminophen 650 mg 12/04/17 16:07 Tylenol - PO Q6H PRN PAIN LEVEL 1-5 Metronidazole 500 mg in 100 mls @ 100 mls/hr 12/04/17 18:00 Flagyl 500mg Premixed Ivpb - IVPB Q8H-IV BRITTON Levofloxacin 750 mg in 150 mls @ 100 mls/hr 12/05/17 10:00 Levaquin 750 Mg Premixed Ivpb - IVPB 12/07/17 10:59 DAILY BRITTON Ibuprofen 600 mg 12/04/17 16:08 Motrin - PO Q6H PRN PAIN LEVEL 1-5 Morphine Sulfate 4 mg 12/04/17 16:12 Morphine Injection - IVPUSH Q6H PRN PAIN LEVEL 7 - 10 Ondansetron HCl 4 mg 12/04/17 16:12 Zofran Injection IVPUSH Q4H PRN NAUSEA AND/OR VOMITING IMAGING: CT AbD/Pelvis: Bowel: 8.4 mm appendix with mild periappendiceal inflammatory changes but. The appendix extends medially and posteriorly into the pelvis. Findings suggest appendicitis and should be correlated clinically. No abscess or free air seen. Sigmoid diverticulosis without CT evidence of diverticulitis. Other: Small hiatal hernia. Impression: Findings are consistent with acute appendicitis. No free air or abscess is seen. Other findings as above. ASSESSMENT/PLAN: 47 year old female without significant past medical history presents with acute abdominal pain 2/2 acute appendicitis #Acute Appendicitis: -IVF hydration -Dr. Schmidt consulted - for surgery at 1:30pm for appendectomy -continue levoquin and flagyl -if surgery without complications, possible DC later today -morphine/tylenol for pain -zofran for 4mg Q4 PRN #FEN NPO Fluids Replete lytes if necessary #Prophylaxis -early ambulation #Disposition -Monitor on med-surg -possible DC if surgery goes well Visit type - Emergency Visit Emergency Visit: Yes ED Registration Date: 12/04/17 Care time: The patient presented to the Emergency Department on the above date and was hospitalized for further evaluation of their emergent condition. - New Patient This patient is new to me today: Yes Date on this admission: 12/04/17 - Critical Care Critical Care patient: No
[2017-12-04] MEDS ORDERED: LACTATED RINGERS SOLUTION 1,000 ML/1,000 ML INFUS.BAG IV SCH (16:45)
[2017-12-05] MEDS: morphine SULFATE 4 MG/ML VIAL IVPUSH PRN ×2 (01:08→08:52)
[2017-12-05 07:25] VITALS: BP 127/86; PULSE 89; TEMP 98
[2017-12-05 08:35] LABS: BASO % 0.9 % (0-2.0); HEMATOCRIT 38.4 % (32.4-45.2); HEMOGLOBIN 12.4 GM/dL (10.7-15.3); LYMPH % 13.3 % (8-40); MCH 29.9 pg (25.7-33.7); MCHC 32.2 g/dl (32.0-36.0); MEAN CELL VOLUME 92.7 fl (80-96); MEAN PLT VOLUME 10.3 fl (7.5-11.1); MONO % 3.5 % (3.8-10.2); NEUT % 82.3 % (42.8-82.8); PLATELET COUNT 305 K/MM3 (134-434); RBC 4.15 M/mm3 (3.60-5.2); RDW 13.8 % (11.6-15.6); WHITE BLOOD COUNT 17.7 K/mm3 (4.0-10.0)
--- NOTE | 2017-12-05 09:28 | PN ---
Teaching Attending Note Name of Resident: Arron Hubbard ATTENDING PHYSICIAN STATEMENT I saw and evaluated the patient. I reviewed the resident's note and discussed the case with the resident. I agree with the resident's findings and plan as documented. SUBJECTIVE: No fever or chills, has mild abd pain, no N/V. tolerated diet last night OBJECTIVE: NAD, old surgical scar on L anterior neck CV: RRR Lungs: CTAB Ext: no edema Abd: soft, TTP in al quadrants annika RLQ . A/P: 47 y/o lady with h/o neck surgery and CCY who presented with acute abd pain and was found to have acute appendicitis. Now s/p appendectmy 12/04 tolerated diet minimal abd pain. cont with ibuprofen wbc improve, will give this morning dose of abx, and expect WBC to drop . No need for further abx after dc as the sourceof infection was controlled and has no signs of sepsis . part of this leukocytosis is a response to surgery dc home today f/u with dr. Tan f/u with PCP in [facility].
--- NOTE | 2017-12-05 12:23 | PN ---
Progress Note (short form) - Note Progress Note: Covering for Dr. Schmidt: POD1 s/p laparoscopic appendectomy OOB and ambulating, voiding, tolerating diet passing gas, no BM yet pt refuses tylenol and/or ibuprofen for pain - took morphine, wants percocet to go home still with some pain Vital Signs Period Temp Pulse Resp BP Sys/Cruz Pulse Ox Last 24 Hr 98 F-98.9 F 78-92 16-18 117-132/54-86 96-98 PE: A&O obese, in no distress R thigh with mild pink, half outline of grounding pad laterally, no open skin abdomen soft, obese, nondistended, mild tenderness RLQ and LLQ incision, minimal at umbilicus suprapubic dressing with serosanguineous drainage, tegaderm not intact at bottom - dressing changed with new 2x2 and tegaderm steristrips intact, dried blood only CBC, BMP 12/05/17 08:00 12/04/17 07:25 A/P: POD1 s/p lap appy for acute appendicitis overall doing well completed antibiotics need to be able to manage pain with po pain meds for discharge home explained and encouraged pt to try using tylenol and ibuprofen alternating at home, as they can be synergistic for pain control (she states tylenol does not work for her and bothered her stomach this am, "I won't take those pills") if percocet Rx, encouraged to use breakthrough only and for short term if using narcotic, stool softener also advised to minimize constipation postop instructions in d/c plan primary plans for cbc in 1 week to f/u in 2 weeks as noted with Dr. Schmidt Problem List - Problems (1) Acute appendicitis Code(s): K35.80 - UNSPECIFIED ACUTE APPENDICITIS Qualifiers: Acute appendicitis type: unspecified acute appendicitis type Qualified Code (s): K35.80 - Unspecified acute appendicitis (2) Obesity (BMI 30.0-34.9) Code(s): E66.9 - OBESITY, UNSPECIFIED
--- NOTE | 2017-12-05 13:19 | DS ---
Physical Exam: SUBJECTIVE: Patient seen and examined at bedside. States she has some pain near the incision sites. No fevers or chills reported. Patient tolerates diet and urinates spontaneously. Has not yet had a BM but is passing gas. OBJECTIVE: Vital Signs Period Temp Pulse Resp BP Sys/Cruz Pulse Ox Last 24 Hr 98 F-98.9 F 78-92 16-18 117-132/54-86 96-99 PHYSICAL EXAM GENERAL: The patient is awake, alert, and fully oriented, in no acute distress. LUNGS: CTA HEART: RRR no murmurs ABDOMEN: Obese, Soft, mild tenderness to palpation around the surgical incisions. Incisions are clean and dry. EXTREMITIES: 2+ pulses, warm, well-perfused, no edema. NEUROLOGICAL: Cranial nerves II through XII grossly intact. Normal speech, gait not observed. PSYCH: Normal mood, normal affect. SKIN: Warm, dry, normal turgor, no rashes or lesions noted LABS Laboratory Results - last 24 hr 12/05/17 08:00 WBC 17.7 H RBC 4.15 Hgb 12.4 Hct 38.4 MCV 92.7 MCH 29.9 MCHC 32.2 RDW 13.8 Plt Count 305 MPV 10.3 Neutrophils % 82.3 Lymphocytes % 13.3 D Monocytes % 3.5 L Eosinophils % 0.0 D Basophils % 0.9 CT AbD/Pelvis: Bowel: 8.4 mm appendix with mild periappendiceal inflammatory changes but. The appendix extends medially and posteriorly into the pelvis. Findings suggest appendicitis and should be correlated clinically. No abscess or free air seen. Sigmoid diverticulosis without CT evidence of diverticulitis. Other: Small hiatal hernia. Impression: Findings are consistent with acute appendicitis. No free air or abscess is seen. Other findings as above. HOSPITAL COURSE: Date of Admission:12/04/17 47 year old female with no significant history presented to the ED with 1 day hx of generalized 7/10 abdominal pain in the lower quadrants associated with abdominal fullness, loss of appetite and nausea without vomiting. CT abdomen showed periappendiceal inflammatory changes suggestive of appendicitis. Surgery Dr. Schmidt was consulted, who took the patient to OR for laparoscopic appendectomy. The following day, patient tolerated diet, pain had improved, and she was able to urinate. Patient was discharged home with instructions to take ibuprofen every 6 hours as needed for pain, to get a CBC within 1 week and to see Dr[address] Schmidt in the office as well as her primary care physician. Date of Discharge: 12/05/17 Minutes to complete discharge: 35 Discharge Summary Reason For Visit: ACUTE APPENDICITIS Condition: Improved - Instructions Diet, Activity, Other Instructions: Postoperative instructions: You had a laparoscopic appendectomy on 12/04/[address] Khris Schmidt of [facility]. Activity: Resume your usual activities gradually, but no heavy exertion or lifting more than 10-15 pounds for 1 month. Remove dressings 48 hours after surgery; sticky tapes underneath will fall off by themselves. You may shower daily starting then, just pat the incision areas dry. Eat lightly at first, but advance to your usual diet as tolerated. Pain: For pain, you may use ibuprofen every 6 hours each as needed ( with food ) Follow-up: Call Dr. Schmidt' office at [phone] to make your postop appointment (Thursday ~2 weeks after surgery). Clinic is held in the Diagnostic [facility] on the first floor of [facility]. Call the office if you have: * increasing pain not responsive to pain medication * fever of 101F or higher * vomiting * unusual or increasing bleeding or drainage from wounds * increasing redness or swelling at wound sites * inability to urinate Laboratory Testing: please get your blood drawn in 1 week and have the results faxed to your primary care physician and Dr. Schmidt, the surgeon (fax # [phone]). Also, see your primary medical doctor within 1-2 weeks. If you do not have one, make an appointment with [facility] at: Dr. Arron Hubbard D[address] [facility] [place] [address] You can make an appointment any day of the week with any of our physicians - Dr. Hubbard is in the office only Tuesdays between 1pm and 4pm. Referrals: Harvey Meléndez MD [Staff Physician] - 2 Weeks Khris Schmidt MD [Staff Physician] - 1 Week Disposition: HOME - Home Medications Comprehensive Discharge Medication List: Ambulatory Orders Oxycodone HCl/Acetaminophen [Percocet 5-325 mg Tablet] 1 - 2 tab PO Q6H Ibuprofen [Motrin -] 600 mg PO Q6H #30 tablet 12/05/17 Ibuprofen [Motrin -] 600 mg PO Q6H PRN #30 tablet 12/05/17 Miscellaneous Drug Not In Syst [Outpatient Lab Test] 1 each ASDIR #1 misc This patient is new to me today: No Emergency Visit: No Critical Care patient: No - Discharge Referral Referred to [facility] No
--- NOTE | 2017-12-08 13:30 | OP ---
DATE OF OPERATION: 12/04/2017 PREOPERATIVE DIAGNOSIS: Acute appendicitis. POSTOPERATIVE DIAGNOSIS: Acute appendicitis. PROCEDURE: Laparoscopic appendectomy. ATTENDING SURGEON: Khris Schmidt MD ANESTHESIOLOGIST: Arron Martin MD ANESTHESIA TYPE: General with local. Local consisted of 0.5% Marcaine. A total of 10 mL given at the port sites. ESTIMATED BLOOD LOSS: 10 mL ESTIMATED INTRAVENOUS FLUID: 400 mL OUTPUT: Ferraro put out 200 mL urine and was removed postoperatively. SPECIMEN: Appendix. INDICATION: Patient is presenting to the emergency department complaining of right lower quadrant pain for a period of 1 day. She was counseled regarding risks, benefits, and alternatives to surgical removal of her appendix. She signed informed consent after being explained the risks, benefits, and alternatives, and she was taken to procedure. DESCRIPTION OF PROCEDURE: Patient was brought to the operating room, placed in supine position on the operating table with the right arm extended at 90 degrees perpendicular to the body's axis and left arm tucked. Patient had bilateral lower extremities placed into SCDs. Patient was induced with general anesthesia without event, endotracheally intubated. She received intravenous antibiotics prior to incision. The anterior abdominal wall was shaved, prepped, and draped in standard surgical fashion, blocking the lower abdomen. A Ferraro was also placed to gravity to decompress the bladder. We proceeded first with a formal timeout, identifying the operative site. With all parties in agreement, we proceeded first with an infraumbilical approach. A small midline Je entry was planned at the skin. It was incised with a 15-blade scalpel, deepened and widened through the subcutaneous tissue. Care was taken to dissect down to the anterior fascia of the rectus muscles in the midline. The fascia, once identified, was elevated with Velvet clamps and then entered into the abdomen under direct visualization. A blunt entry with a finger was made, clearing the anterior adhesions to the abdominal wall. A 12-mm Je port was then installed into the abdomen, and pneumoperitoneum was established to 15 mmHg. We proceeded then with a 5-mm scope, 30 degrees, to identify intraabdominal viscera. There did appear to be inflammatory changes in the right lower quadrant without significant peel or purulent material. We proceeded then with installing two additional 5-mm ports, one at the suprapubic area in the midline and one at the level of the anterior-superior iliac spine in the midclavicular line. We proceeded then with dissection with placement of the patient into Trendelenburg and then dissection at the cecum, following the tinea of the colon down to the termination at the base of the appendix. The appendix itself appeared inflamed and had creeping fat. It was identified and grasped in its mid-point. A [place] dissector was then used to develop a plane between the appendix and the mesoappendix. An Endo LUIGI blue load, size 60 mm was then introduced to the abdomen to transect the appendix base. This stapler was fired with a clear transection of the appendix base, leaving the mesoappendix. The mesoappendix was then cleared of all attachments from the lateral wall, and an Endo LUIGI size 60-mm white load was then used to transect the mesoappendix itself. Hemostasis was clear in this case. A small amount of free fluid which was tanika in color was suctioned from the pelvis. A small amount of blood was suctioned from the stump. The 5-mm trocars were then removed from the abdomen; pneumoperitoneum relieved. The remainder of the abdominal viscera was inspected and appeared to be normal and without significant pathology. The patient was returned to level position and the Je port was removed and the pneumoperitoneum was relieved. The Je port at the umbilicus was then closed with a needle using a 0 Vicryl in a figure-of-8 fashion to ablate the hole in the fascia. This was tied, taking time to assure there was no bowel interposed in the closure. The skin was then irrigated at each port site and closed with 4-0 Polysorb in interrupted fashion at the 5-mm trocars and with a running subcuticular at the umbilicus. The skin was cleaned. Sterile dressings of benzoin, Steri-Strips, gauze sponges, and Tegaderms were placed. The patient was awoken from general anesthesia, having tolerated the procedure well. She remained stable throughout the procedure. Counts were correct before abdominal closure. MD CHARLOTTE Gomez/[id number]
--- NOTE | 2017-12-08 14:15 | PATH ---
Surgical Pathology Report Patient Name: BON MOREJON [facility]. Rec. #: [id number] /Age/Gender: 1970 (Age: 47) / F Account: [id number] Location: [address] [place] [address] Taken: 12/04/2017 Received: 12/07/2017 Reported: 12/08/2017 Physicians: Jay Gomez M.D. Specimen(s) Received APPENDIX Clinical History Acute appendicitis Final Diagnosis APPENDIX, LAPAROSCOPIC APPENDECTOMY: ACUTE APPENDICITIS AND PERIAPPENDICITIS. Electronically Signed Celia Francois M.D. Gross Description Received in formalin, labeled "appendix," is a 5.7 cm. in length vermiform appendix with a stapled margin of resection and moderate attached fat. The serosa is gaitan-antony with attached exudate. Sectioning reveals an unremarkable lumen. The wall of the appendix averages 0.1 cm. in thickness. Room Service Waiter/Waitress sections are submitted in one cassette. /12/07/2017 [facility]12/07/2017
== END 2017-12-05 13:00 | disposition home or self-care (01) | DRG 225 ==
LOC: JER 23:57 → JERBED 12-04 04:06 → J5S 12-04 06:43
PROVIDERS: ADMIT Internal Medicine; ATTEND Internal Medicine
PROC: 0DTJ4ZZ Resection of Appendix, Percutaneous Endoscopic Approach (ICD-10-PCS; principal; 2017-12-04 13:30)
DX: K35.80 Unspecified acute appendicitis (principal)
CPT/HCPCS: 36415; 71045-TC-FY; 74177-TC; 80053; 81003; 83690; 83735; 84100; 84703; 85025; 85610; 85730; 87040; 87086; 88304-TC; 93005; 93010; 94760; 99284-25; J0131; J7030

== ENCOUNTER 2018-02-24 11:45 | Emergency (ER) | payer OTHER ==
[2018-02-24 11:58] VITALS: BP 124/72; PULSE 71; TEMP 98.6; BMI 30.9
[2018-02-24] MEDS ORDERED: ALBUTEROL SO4 2.5/IPRATROPIUM 0.5 INH SOL 3 ML VIAL.NEB. NEB ONE ×2 (13:18→13:21)
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
== END 2018-02-24 14:01 | disposition home or self-care (01) ==
LOC: JERFT 11:45
PROC: 3E0F7GC Introduction of Other Therapeutic Substance into Respiratory Tract, Via Natural or Artificial Opening (ICD-10-PCS; principal; 2018-02-24)
DX: J30.1 Allergic rhinitis due to pollen (principal)
CPT/HCPCS: 71046-TC-FY; 99281-25; J7620

== ENCOUNTER 2018-11-18 08:17 | Emergency (ER) | payer OTHER ==
[2018-11-18 08:29] VITALS: BP 133/78; PULSE 74; TEMP 98.4; BMI 30.9
--- NOTE | 2018-11-18 09:21 | PDOC ---
History of Present Illness - General Chief Complaint: Chronic pain Stated Complaint: LOWER BACK PAIN Time Seen by Provider: 11/18/18 08:35 History Source: Patient Exam Limitations: No Limitations - History of Present Illness Initial Comments: 11/18/18 09:56 Patient is a 48-year-old female with history of lumbar surgery who presents to the ER today for right-sided low back pain. Patient states she woke up and had a back pain down her right side. Denies, or falling. Denies numbness and tingling to the extremities, weakness to the extremities, bladder bowel incontinence and saddle anesthesia. Patient states she took a Percocet at home with minimal relief of her pain. She also tried a muscle relaxer for which she cannot remember the name which did not help. Past History - Travel Traveled outside of the country in the last 30 days: No Close contact w/someone who was outside of country & ill: No - Past Medical History Allergies/Adverse Reactions: Allergies Allergy/AdvReac Type Severity Reaction Status Date / Time No Known Allergies Allergy Verified 11/18/18 08:28 Home Medications: Ambulatory Orders Diazepam [Valium] 2 mg PO DAILY #10 tablet MDD 1 11/18/18 Methylprednisolone [Medrol Dose Sanju] 4 mg PO ASDIR #21 tablet 11/18/18 Anemia: No Asthma: No Cardiac Disorders: No COPD: No Disorders: No HTN: No Thyroid Disease: No - Surgical History Appendectomy: Yes Cholecystectomy: Yes Neurologic Surgery: (cervical implanted [place]) Orthopedic Surgery: Yes - Immunization History Immunization Up to Date: Yes - Suicide/Smoking/Psychosocial Hx Smoking Status: Yes Smoking History: Current every day smoker Have you smoked in the past 12 months: No Number of Cigarettes Smoked Daily: 20 Information on smoking cessation initiated: No Hx Alcohol Use: No Drug/Substance Use Hx: No (occassional) Review of Systems - Review of Systems Able to Perform ROS?: Yes Comments:: 11/18/18 09:16 CONSTITUTIONAL: Absent: fever, chills, diaphoresis, generalized weakness, malaise, loss of appetite HEENT: Absent: rhinorrhea, nasal congestion, throat pain, throat swelling, difficulty swallowing, mouth swelling, ear pain, eye pain, visual Changes CARDIOVASCULAR: Absent: chest pain, loss of consciousness, palpitations, irregular heart rate, peripheral edema RESPIRATORY: Absent: cough, shortness of breath, dyspnea with exertion, orthopnea, wheezing, stridor, hemoptysis GASTROINTESTINAL: Absent: abdominal pain, abdominal distension, nausea, vomiting, diarrhea, constipation, melena, hematochezia GENITOURINARY: Absent: dysuria, frequency, urgency, hesitancy, hematuria, flank pain, genital pain MUSCULOSKELETAL: Present: R sided low back pain Absent: arthralgia, joint swelling SKIN: Absent: rash, itching, pallor HEMATOLOGIC/IMMUNOLOGIC: Absent: easy bleeding, easy bruising, lymphadenopathy, frequent infections ENDOCRINE: Absent: unexplained weight gain, unexplained weight loss, heat intolerance, cold intolerance NEUROLOGIC: Absent: headache, focal weakness or paresthesias, dizziness, unsteady gait, seizure, mental status changes, bladder or bowel incontinence PSYCHIATRIC: Absent: anxiety, depression, suicidal or homicidal ideation, hallucinations. Is the patient limited [place] proficient: No *Physical Exam - Vital Signs Last Vital Signs Temp Pulse Resp BP Pulse Ox 98.4 F 74 16 133/78 100 11/18/18 08:25 11/18/18 08:25 11/18/18 08:25 11/18/18 08:25 11/18/18 08:25 - Physical Exam Comments: 11/18/18 09:17 GENERAL: Well developed, well nourished. Awake and alert. No acute distress. HEENT: Normocephalic, atraumatic. PERRLA, EOMI. No conjunctival pallor. Sclera are non- icteric. Moist mucous membranes. Oropharynx is clear. NECK: Supple. Full ROM. No JVD. Carotid pulses 2+ and symmetric, without bruits. No thyromegaly. No lymphadenopathy. CARDIOVASCULAR: Regular rate and rhythm. No murmurs, rubs, or gallops. Distal pulses are 2+ and symmetric. PULMONARY: No evidence of respiratory distress. Lungs clear to auscultation bilaterally. No wheezing, rales or rhonchi. ABDOMINAL: Soft. Non-tender. Non-distended. No rebound or guarding. No organomegaly. Normoactive bowel sounds. MUSCULOSKELETAL TTP of the R paraspinous muscles, L3-L5, with palpable knot consistent with muscle spasm. Negative straight leg raise testing b/l, no midline tenderness.Normal range of motion at all joints. No bony deformities or tenderness. No CVA tenderness. EXTREMITIES: No cyanosis. No clubbing. No edema. No calf tenderness. SKIN: Warm and dry. Normal capillary refill. No rashes. No jaundice. NEUROLOGICAL: Alert, awake, appropriate. Cranial nerves 2-12 intact. No deficits to light touch and temperature in face, upper extremities and lower extremities. No motor deficits in the in face, upper extremities and lower extremities. Normoreflexic in the upper and lower extremities. Normal speech. Toes are down- going bilaterally. Gait is normal without ataxia. PSYCHIATRIC: Cooperative. Good eye contact. Appropriate mood and affect. Moderate Sedation - Procedure Monitoring Vital Signs: Procedure Monitoring Vital Signs Temperature 98.4 F 11/18/18 08:25 Pulse Rate 74 11/18/18 08:25 Respiratory Rate 16 11/18/18 08:25 Blood Pressure 133/78 11/18/18 08:25 O2 Sat by Pulse Oximetry (%) 100 11/18/18 08:25 Medical Decision Making - Medical Decision Making 11/18/18 09:21 Patient is a 48-year-old female with history of low back pain with previous surgery, who presents to the ER for a right-sided back pain starting yesterday. -Pt with TTP of the R paraspinous muscles, L3-L5, with palpable knot consistent with muscle spasm. Negative straight leg raise testing b/l, no midline tenderness. -No trauma, or fever. No saddle anesthesia or bladder/bowel incontinence. No CVA tenderness. -Pt is neurologically intact on exam with no focal findings. Gait intact. -Pt states she took percocet at home and a muscle relaxer, but it didn't help -X-ray not indicated at this time as pt had no trauma; explained to patient that she needs to follow up with her spine doctor -Pt given toradol and valium for pain -DC home -I discussed the physical exam findings, ancillary test results and final diagnoses with the patient. I answered all of the patient's questions. The patient was satisfied with the care received and felt comfortable with the discharge plan and treatment plan. The Patient agrees to follow up with the primary care physician/specialist within 24-72 hours. Return precautions were given. *DC/Admit/Observation/Transfer Diagnosis at time of Disposition: Back pain, acute Qualifiers: Back pain location: low back pain Back pain laterality: right Sciatica presence : without sciatica Qualified Code(s): M54.5 - Low back pain - Discharge Dispostion Disposition: HOME Condition at time of disposition: Stable Decision to Admit order: No - Prescriptions Prescriptions: Diazepam [Valium] 2 mg PO DAILY #10 tablet MDD 1 Methylprednisolone [Medrol Dose Sanju] 4 mg PO ASDIR #21 tablet - Referrals Referrals: Barrett Vides MD, FAANS [Staff Physician] - - Patient Instructions Printed Discharge Instructions: DI for Low Back Pain Additional Instructions: You have low back pain due to a muscle spasm. Please take the medrol dose pack as prescribed You were also prescribed valium. Please take this medication every 8 hours for the first day. Then take the medication before you go to bed. Do not drive after taking this medication as it may make you sleepy. You may use warm compresses on your back to help with her symptoms. Please follow-up with your primary care doctor. If your symptoms do not resolve in 3-5 days, follow-up with orthopedics. A referral has been provided for you. Return to the emergency department if you have worsening back pain, bladder or bowel incontinence, numbness and tingling in her legs, changes in the way you walk, or any new or worsening symptoms. - Post Discharge Activity Forms/Work/School Notes: Back to Work
[2018-11-18] MEDS ORDERED: KETOROLAC TROMETHAMINE 60 MG/2 ML VIAL IM ONE (09:26)
[2018-11-18] MEDS ORDERED: diazePAM 5 MG TABLET PO ONE (09:26)
[2018-11-18] MEDS ORDERED: diazePAM 5 MG TABLET ONE (09:29)
[2018-11-18] MEDS ORDERED: KETOROLAC TROMETHAMINE 60 MG/2 ML VIAL ONE (09:29)
== END 2018-11-18 09:35 | disposition home or self-care (01) ==
LOC: JERFT 08:17
PROC: 3E0233Z Introduction of Anti-inflammatory into Muscle, Percutaneous Approach (ICD-10-PCS; principal; 2018-11-18)
DX: M54.5 Low back pain (principal); M62.830 Muscle spasm of back
CPT/HCPCS: 99281-25

== ENCOUNTER 2019-03-24 15:26 | Emergency (ER) | payer OTHER | END 2019-03-24 18:54 | disposition home or self-care (01) | LOC: JER 15:26 ==

== ENCOUNTER 2019-04-02 12:30 | Emergency (ER) | payer OTHER ==
[2019-04-02 12:43] VITALS: BP 110/72; PULSE 81; TEMP 97.9; BMI 29.2
[2019-04-02] MEDS ORDERED: KETOROLAC TROMETHAMINE 60 MG/2 ML VIAL IM ONE (13:10)
[2019-04-02] MEDS ORDERED: diazePAM 2 MG TABLET PO ONE (13:10)
[2019-04-02] MEDS ORDERED: LIDOCAINE 5% TOPICAL PATCH TP ONE (13:11)
--- NOTE | 2019-04-02 13:16 | PDOC ---
History of Present Illness - General Chief Complaint: Back Pain Stated Complaint: LOWER BACK PAIN Time Seen by Provider: 04/02/19 12:55 History Source: Patient Exam Limitations: No Limitations Past History - Travel Traveled outside of the country in the last 30 days: No Close contact w/someone who was outside of country & ill: No - Past Medical History Allergies/Adverse Reactions: Allergies Allergy/AdvReac Type Severity Reaction Status Date / Time No Known Allergies Allergy Verified 04/02/19 12:40 Home Medications: Ambulatory Orders Cyclobenzaprine HCl [Flexeril -] 10 mg PO HS #10 tablet 04/02/19 Ibuprofen 600 mg PO Q6H #30 tablet 04/02/19 Anemia: No Asthma: No Cardiac Disorders: No COPD: No Disorders: No HTN: No Thyroid Disease: No - Surgical History Appendectomy: Yes Cholecystectomy: Yes Neurologic Surgery: (cervical implanted [place]) Orthopedic Surgery: Yes - Immunization History Immunization Up to Date: Yes - Suicide/Smoking/Psychosocial Hx Smoking Status: Yes Smoking History: Never smoked Have you smoked in the past 12 months: No Number of Cigarettes Smoked Daily: 4 Information on smoking cessation initiated: No Hx Alcohol Use: No Drug/Substance Use Hx: No Review of Systems - Review of Systems Able to Perform ROS?: Yes Comments:: 04/02/19 13:30 CONSTITUTIONAL: Absent: fever, chills, diaphoresis, generalized weakness, malaise, loss of appetite GASTROINTESTINAL: Absent: abdominal pain, abdominal distension, nausea, vomiting, diarrhea, constipation, melena, hematochezia GENITOURINARY: Absent: dysuria, frequency, urgency, hesitancy, hematuria, flank pain, genital pain MUSCULOSKELETAL: Present: low back pain Absent: arthralgia, joint swelling SKIN: Absent: rash, itching, pallor NEUROLOGIC: Absent: headache, focal weakness or paresthesias, dizziness, unsteady gait, seizure, mental status changes, bladder or bowel incontinence PSYCHIATRIC: Absent: anxiety, depression, suicidal or homicidal ideation, hallucinations. Is the patient limited Kazakh proficient: No *Physical Exam - Vital Signs Last Vital Signs Temp Pulse Resp BP Pulse Ox 97.9 F 81 18 110/72 98 04/02/19 12:40 04/02/19 12:40 04/02/19 12:40 04/02/19 12:40 04/02/19 12:40 - Physical Exam Comments: 04/02/19 13:31 GENERAL: Well developed, well nourished. Awake and alert. No acute distress. HEENT: Normocephalic, atraumatic. PERRLA, EOMI. No conjunctival pallor. Sclera are non- icteric. Moist mucous membranes. Oropharynx is clear. NECK: Supple. Full ROM. No JVD. Carotid pulses 2+ and symmetric, without bruits. No thyromegaly. No lymphadenopathy. MUSCULOSKELETAL TTP of the b/L paraspinous muscles, L3-S4, with palpable knot consistent with muscle spasm. (-) straight leg raise. No midline tenderness. Normal range of motion at all joints. No bony deformities or tenderness. No CVA tenderness. EXTREMITIES: No cyanosis. No clubbing. No edema. No calf tenderness. SKIN: Warm and dry. Normal capillary refill. No rashes. No jaundice. NEUROLOGICAL: Alert, awake, appropriate. Cranial nerves 2-12 intact. No deficits to light touch and temperature in face, upper extremities and lower extremities. No motor deficits in the in face, upper extremities and lower extremities. Normoreflexic in the upper and lower extremities. Normal speech. Toes are down- going bilaterally. Gait is normal without ataxia. PSYCHIATRIC: Cooperative. Good eye contact. Appropriate mood and affect. Medical Decision Making - Medical Decision Making 04/02/19 13:31 the patient is a 49-year-old female with past medical history of herniated disks , has a nerve stimulation implant in her back, presents to the ER today for low back pain. Patient states that the pain started yesterday and got worse overnight. She denies any heavy lifting or working in a strenuous job. She states that she woke up and her pain was worse and that she could not sit still. She states that she tried taking Tylenol and Flexeril this morning with little relief of her symptoms. Denies fevers, chills, numbness and tingling to the affected extremities, weakness to the affected extremities, silent esthesia in bladder or bowel incontinence. A/P: Low back pain -Pt with TTP of the b/L paraspinous muscles, L3-S4, with palpable knot consistent with muscle spasm. (-) straight leg raise. No midline tenderness -No trauma, or fever. No saddle anesthesia or bladder/bowel incontinence. No CVA tenderness. -Pt is neurologically intact on exam with no focal findings. -Toradol given with relief of symptoms -DC home. Pt to f/u with her PCP. Ortho referral given. -I discussed the physical exam findings, ancillary test results and final diagnoses with the patient. I answered all of the patient's questions. The patient was satisfied with the care received and felt comfortable with the discharge plan and treatment plan. The Patient agrees to follow up with the primary care physician/specialist within 24-72 hours. Return precautions were given. *DC/Admit/Observation/Transfer Diagnosis at time of Disposition: Back pain, acute Qualifiers: Back pain location: low back pain Back pain laterality: bilateral Sciatica presence: without sciatica Qualified Code(s): M54.5 - Low back pain - Discharge Dispostion Disposition: HOME Condition at time of disposition: Stable Decision to Admit order: No - Prescriptions Prescriptions: Cyclobenzaprine HCl [Flexeril -] 10 mg PO HS #10 tablet Ibuprofen 600 mg PO Q6H #30 tablet - Referrals Referrals: Barrett Vides MD, FAANS [Staff Physician] - - Patient Instructions Printed Discharge Instructions: DI for Low Back Pain Additional Instructions: You were evaluated for your low back pain today. It is most likely due to a muscle spasm Please take the Motrin as directed Take the Flexiril every 8 hours the first day. Then take the medication at night only. Do not drink or drive after taking this medication as it may make you drowsy. You may apply warm compresses to the area. Please follow up with orthopedics if your symptoms do not improve this week; a referral has been provided to you Return to the ER for worsening pain despite treatment, numbness/weakness down the extremities, changes in the way you walk, numbness/tingling to the groin, if you have bladder/bowel incontinence, or if you have any changes in your symptoms. Hoy te evaluaron para tu dolor de espalda baja. Lo ms probable es que se deba a un espasmo muscular Por favor tome el Motrin swati se indica [place] el Flexiril cada 8 horas el primer da. Luego tome el medicamento solo por la noche. No charlene ni conduzca despus de augustus tyler medicamento, ya que puede causarle somnolencia. Puede aplicar compresas calientes en la bibi. Por favor, siga con ortopedia si gio sntomas no mejoran esta semana; se le hardin proporcionado toni referencia Regrese a urgencias para empeorar el dolor a pesar del tratamiento, entumecimiento/debilidad en las extremidades, cambios en la forma en que camina , entumecimiento/hormigueo en la anne, si tiene incontinencia de vejiga/ inclinacin, o si tiene algn cambio en los sntomas. - Post Discharge Activity
[2019-04-02] MEDS ORDERED: LIDOCAINE 5% TOPICAL PATCH ONE (13:20)
[2019-04-02] MEDS ORDERED: diazePAM 2 MG TABLET ONE (13:20)
[2019-04-02] MEDS ORDERED: KETOROLAC TROMETHAMINE 30 MG/1 ML VIAL ONE (13:21)
[2019-04-02] MEDS ORDERED: LIDOCAINE PATCH REMOVAL MC SCH (22:00)
== END 2019-04-02 13:35 | disposition home or self-care (01) ==
LOC: JERFT 12:30
PROC: 3E0233Z Introduction of Anti-inflammatory into Muscle, Percutaneous Approach (ICD-10-PCS; principal; 2019-04-02)
DX: M54.5 Low back pain (principal)
CPT/HCPCS: 96372; 99282-25

== ENCOUNTER 2019-09-27 06:34 | Emergency (ER) | payer OTHER ==
--- NOTE | 2019-09-27 07:25 | PDOC ---
History of Present Illness - General Stated Complaint: ABD PAIN Time Seen by Provider: 09/27/19 07:24 - History of Present Illness Initial Comments: 09/27/19 07:40 49 year old woman with a history of low back pain and HTN who presents with quick onset 10/10 stabbing non radiating epigastric abdominal pain that occurred at 2000 last night while sitting on the couch. The patient reports that she had 3 episodes of nbnb emesis and took ranitidine that she took over the counter with moderate relief. The patient denies diarrhea and states that her last BM was yesterday and was normal and well formed. She complains of chills of the time of the pain and gas. She reports that since onset the pain has started to subside around 0500 this am. The patient had a cholecystectomy PSHX: cholecystectomy, tummy tuck, hysterectomy ROS GENERAL/CONSTITUTIONAL: No fever, +chills. No weakness. HEAD, EYES, EARS, NOSE AND THROAT: No change in vision. No ear pain or discharge. No sore throat. CARDIOVASCULAR: No chest pain or shortness of breath RESPIRATORY: No cough, wheezing, or hemoptysis. GASTROINTESTINAL: + nausea, vomiting Nodiarrhea or constipation. GENITOURINARY: No dysuria, frequency, or change in urination. MUSCULOSKELETAL: No joint or muscle swelling or pain. No neck or back pain. SKIN: No rash PE GENERAL: Awake, alert, and fully oriented, in no acute distress HEAD: No signs of trauma, normocephalic, atraumatic EYES: EOMI, sclera anicteric, conjunctiva clear ENT: oropharynx clear without exudates. Moist mucosa NECK: Normal ROM, supple LUNGS: No distress, speaks full sentences, clear to auscultation bilaterally HEART: Regular rate and rhythm, normal S1 and S2, no murmurs, rubs or gallops, peripheral pulses normal and equal bilaterally. ABDOMEN: Soft, + mild epigastric tenderness to palpation. No guarding, no rebound. No masses EXTREMITIES : Normal inspection, Normal range of motion, no edema. No clubbing or cyanosis. NEUROLOGICAL: Cranial nerves II through XII grossly intact. Normal speech, no focal sensorimotor deficits SKIN: Warm, Dry, normal turgor, no rashes or lesions noted MDM DDX including but not limited to: GERD vs pancreatitis post cholecystectomy, possible retained stone r/o acs ED Course: labs wnl patient reassessed with improvement of pain after pepcid and maalox ekg: nsr at 73bpm trop negative Patient stable for discharge D/c with pcp and gi f/u Smita Parker, PGY2 Emergency Medicine Past History - Past Medical History Allergies/Adverse Reactions: Allergies Allergy/AdvReac Type Severity Reaction Status Date / Time No Known Allergies Allergy Verified 09/27/19 07:29 Home Medications: Ambulatory Orders Famotidine [Pepcid -] 20 mg PO BID #14 tablet 09/27/19 Anemia: No Asthma: No Cardiac Disorders: No COPD: No Disorders: No HTN: No Thyroid Disease: No - Surgical History Appendectomy: Yes Cholecystectomy: Yes Neurologic Surgery: (cervical implanted [place]) Orthopedic Surgery: Yes - Immunization History Immunization Up to Date: Yes - Psycho Social/Smoking Cessation Hx Smoking Status: Yes Smoking History: Never smoked Have you smoked in the past 12 months: No Number of Cigarettes Smoked Daily: 4 Hx Alcohol Use: No Drug/Substance Use Hx: No ED Treatment Course - LABORATORY CBC & Chemistry Diagram: 09/27/19 07:51 09/27/19 07:51 Discharge - Discharge Information Problems reviewed: Yes Clinical Impression/Diagnosis: Acid reflux Condition: Stable Disposition: HOME - Admission No - Additional Discharge Information Prescriptions: Famotidine [Pepcid -] 20 mg PO BID #14 tablet - Follow up/Referral Referrals: Darrick Arellano MD [Staff Physician] - Celia Tapia DO [Staff Physician] - - Patient Discharge Instructions Patient Printed Discharge Instructions: DI for Gastroesophageal Reflux Disease (GERD) Additional Instructions: You were seen in the ED for complaints of upper abdominal pain In the ED you were evaluated with labwork and you showed improvement of symptoms Labwork was unremarkable There does not appear to be an acute need for immediate hospitalization. You are advised to follow up with your Primary Care Physician within 1 week. You were given a referral to GI and should follow up within 1 week. You were given a prescription for pepcid which should be taken as directed. Return to the ED immediately if you experience worsening abdominal pain, nausea , vomiting, diarrhea, fevers or any other concerning symptoms. Usted fue visto en el servicio de urgencias por quejas de dolor abdominal superior En el servicio de urgencias, fue evaluado con anlisis de laboratorio y mostr toni mejora de los sntomas. El trabajo de laboratorio no fue notable No parece roberto toni necesidad aguda de hospitalizacin inmediata. Se recomienda hacer un seguimiento con guzman mdico de atencin primaria dentro de 1 semana. Recibi toni derivacin a GI y debe realizar un seguimiento dentro de 1 semana. Le dieron toni receta de pepcid que debe tomarse segn las indicaciones. Regrese al servicio de urgencias de inmediato si experimenta un empeoramiento del dolor abdominal, nuseas, vmitos, diarrea, fiebre o cualquier otro sntoma relacionado. - Post Discharge Activity
[2019-09-27 07:42] VITALS: TEMP 97.8; BMI 30.9
[2019-09-27 08:04] LABS: BASO % 1.2 % (0-2.0); EOS % 1.3 % (0-4.5); HEMATOCRIT 41.7 % (32.4-45.2); HEMOGLOBIN 13.9 GM/dL (10.7-15.3); LYMPH % 25.7 % (8-40); MCH 31.2 pg (25.7-33.7); MCHC 33.3 g/dl (32.0-36.0); MEAN CELL VOLUME 93.8 fl (80-96); MEAN PLT VOLUME 9.9 fl (7.5-11.1); MONO % 5.6 % (3.8-10.2); NEUT % 66.2 % (42.8-82.8); PLATELET COUNT 341 K/MM3 (134-434); RBC 4.45 M/mm3 (3.60-5.2); RDW 13.9 % (11.6-15.6); WHITE BLOOD COUNT 12.6 K/mm3 (4.0-10.0)
[2019-09-27] MEDS ORDERED: FAMOTIDINE 20 MG/50 ML IVPB 20 MG/50 ML MG IVPB ONE ×2 (08:06→08:20)
[2019-09-27] MEDS ORDERED: MAG HYDROX/AL HYDROX/SIMETH -MYLANTA- ORAL SUSPENSION PO ONE (08:06)
[2019-09-27] MEDS ORDERED: MAG HYDROX/AL HYDROX/SIMETH 30 ML UNIT-DOSE CUP ONE (08:20)
[2019-09-27 08:34] LABS: ALBUMIN 3.2 g/dl (3.4-5.0); ALK PHOS 73 U/L (45-117); ANION GAP 7 MMOL/L (8-16); BILIRUBIN,TOTAL 0.5 mg/dL (0.2-1); BLOOD UREA NITROGEN 15.5 mg/dL (7-18); CHLORIDE 105 mmol/L (98-107); CO2 27 mmol/L (21-32); CREATININE 0.6 mg/dL (0.55-1.3); GLUCOSE,RANDOM 100 mg/dL (74-106); POTASSIUM 4.3 mmol/L (3.5-5.1); SGOT/AST 16 U/L (15-37); SGPT/ALT 19 U/L (13-61); SODIUM 139 mmol/L (136-145); TOT PROT 7.3 g/dl (6.4-8.2)
[2019-09-27 08:40] LABS: URINE APPEARANCE CLEAR; URINE BILIRUBIN NEGATIVE (NEGATIVE); URINE COLOR YELLOW; URINE GLUCOSE (UA) NEGATIVE (NEGATIVE); URINE KETONE NEGATIVE (NEGATIVE); URINE LEUK ESTERASE NEGATIVE (NEGATIVE); URINE NITRITE NEGATIVE (NEGATIVE); URINE PROTEIN NEGATIVE (NEGATIVE); URINE UROBILINOGEN 0.2 mg/dL (0.2-1.0)
--- NOTE | 2019-09-27 09:34 | PDOC ---
Documentation entered by Sabina Tubbs SCRIBE, acting as scribe for Devika Manriquez MD. Devika Manriquez MD: This documentation has been prepared by the Arley lino Nirvannie, SCRIBE, under my direction and personally reviewed by me in its entirety. I confirm that the documentation accurately reflects all work, treatment, procedures, and medical decision making performed by me. Attending Attestation - Resident Resident Name: Smita Parker - ED Attending Attestation I have performed the following: I have examined & evaluated the patient, The case was reviewed & discussed with the resident, I agree w/resident's findings & plan, Exceptions are as noted - HPI HPI: 09/27/19 09:29 49-year-old female with a history of chronic low back pain, hypertension, H. pylori status post antibiotic treatment treatment 1 year ago presents emergency department with sharp epigastric nonradiating abdominal pain since 8 PM last night while at rest. She reports 3 episodes of nonbloody and nonbilious emesis afterwards. She took ranitidine with moderate relief of her symptoms, however reports the pain was persistent until this morning prompting her to come into the emergency department. She denies any diarrhea. She reports a normal bowel movement yesterday that was not dark or bloody. She reports similar symptoms in the past, but not as severe. She denies any NSAID use or alcohol use. Patient's past surgical history is notable for a cholecystectomy, abdominoplasty , and a hysterectomy. - Physicial Exam PE: 09/27/19 09:31 GENERAL: Awake, alert, and fully oriented, in no acute distress HEAD: No signs of trauma EYES: PERRLA, EOMI, sclera anicteric, conjunctiva clear ENT: Auricles normal inspection, hearing grossly normal, nares patent, oropharynx clear without exudates. Moist mucosa NECK: Normal ROM, supple, no lymphadenopathy, JVD, or masses LUNGS: Breath sounds equal, clear to auscultation bilaterally. No wheezes, and no crackles HEART: Regular rate and rhythm, normal S1 and S2, no murmurs, rubs or gallops ABDOMEN: Soft, nontender, normoactive bowel sounds. No guarding, no rebound. No masses EXTREMITIES: Normal range of motion, no edema. No clubbing or cyanosis. No cords, erythema, or tenderness NEUROLOGICAL: Normal speech, cranial nerves intact, negative pronator drift, 5/ 5 strength in all 4 extremities, normal sensation to light touch in all 4 extremities, normal cerebellar exam, normal gait, normal reflexes and tone SKIN: Warm, Dry, normal turgor, no rashes or lesions noted. - Medical Decision Making 09/27/19 09:31 49-year-old female with a history of H. pylori (diagnosed on endoscopy 1 year ago) presents to the emergency department with epigastric pain with nausea and vomiting last night, now resolved. Abdominal exam is benign. Differential includes gastritis versus gastroenteritis versus pancreatitis versus colitis versus ACS. Labs entirely within normal limits including negative lipase and negative troponin. She has no white count. Her urinalysis is negative. Her EKG is nonischemic. Patient is tolerating p.o. and denies any pain currently. She is clinically well appearing. We will discharge patient with primary care follow-up and strict return precautions. I discussed the physical exam findings, ancillary test results and final diagnoses with the patient. I answered all of the patient's questions. The patient was satisfied with the care received and felt comfortable with the discharge plan and treatment plan. The patient will call their primary care physician within 24 hours to arrange follow-up and will return to the Emergency Department with any new, persistent or worsening symptoms. Heart Score/ECG Review #1 09/27/19 09:33 Twelve-lead EKG was performed and reviewed by me. Normal sinus rhythm, rate 73. Normal axis and intervals. No ST elevations.
--- NOTE | 2019-09-27 09:42 | EKG ---
Test Reason : Blood Pressure : / mmHG Vent. Rate : 073 BPM Atrial Rate : 073 BPM P-R Int : 144 ms QRS Dur : 084 ms QT Int : 380 ms P-R-T Axes : 056 023 017 degrees QTc Int : 418 ms NORMAL SINUS RHYTHM NORMAL ECG WHEN COMPARED WITH ECG OF 24-MAR-2019 15:32, NO SIGNIFICANT CHANGE WAS FOUND Confirmed by MD Ibanez Daniel ([id number]) on 09/27/2019 9:41:48 AM Referred By: Confirmed By:Marlon Ibanez MD
[2019-09-27 09:59] VITALS: BP 132/89; PULSE 71
== END 2019-09-27 09:59 | disposition home or self-care (01) ==
LOC: JER 06:34
PROC: 3E033GC Introduction of Other Therapeutic Substance into Peripheral Vein, Percutaneous Approach (ICD-10-PCS; principal; 2019-09-27)
DX: K21.9 Gastro-esophageal reflux disease without esophagitis (principal)
CPT/HCPCS: 36415; 80053; 81003; 83690; 84484; 84702; 85025; 87086; 93005; 93010; 99283-25

== ENCOUNTER 2019-10-30 16:06 | Emergency (ER) | payer OTHER ==
[2019-10-30 16:21] VITALS: BP 123/81; PULSE 76; TEMP 97.9; BMI 30.9
[2019-10-30] MEDS ORDERED: ALBUTEROL SO4 0.083% IH SOL 2.5 MG/3 ML VIAL.NEB. NEB ONE ×2 (16:49→17:01)
--- NOTE | 2019-10-30 16:51 | PDOC ---
History of Present Illness - General Chief Complaint: Respiratory Stated Complaint: COLD SYMPTOMS Time Seen by Provider: 10/30/19 16:31 History Source: Patient Exam Limitations: No Limitations - History of Present Illness Initial Comments: 10/30/19 16:49 HISTORY OF PRESENT ILLNESS: 49-year-old woman presents emergency department for evaluation of dry productive cough over the past 5 days. She denies any fevers , chills, shortness of breath, chest pain, nausea or vomiting. No recent travel or sick contacts. PAST MEDICAL HISTORY: Denies past medical history SURGICAL HISTORY: Denies ALLERGIES: No known drug allergies REVIEW OF SYSTEMS General/Constitutional: Denies fever or chills. Denies weakness, weight change. HEENT: Denies change in vision. Denies ear pain or discharge. Denies sore throat. Cardiovascular: Denies chest pain or shortness of breath. Respiratory: See HPI Gastrointestinal: Denies nausea, vomiting, diarrhea or constipation. Denies rectal bleeding. Genitourinary: Denies dysuria, frequency, or change in urination. Musculoskeletal: Denies joint or muscle swelling or pain. Denies neck or back pain. Skin and breasts: Denies rash or easy bruising. Neurologic: Denies headache, vertigo, loss of consciousness, or loss of sensation. Psychiatric: Denies depression or anxiety. Endocrine: Denies increased thirst. Denies abnormal weight change. Hematologic/Lymphatic: Denies anemia, easy bleeding, or history of blood clots. Allergic/Immunologic: Denies hives or skin allergy. Denies latex allergy. PHYSICAL EXAM General Appearance: Well-appearing, appropriately dressed. No apparent distress , no intoxication. HEENT: EOMI, PERRLA, normal ENT inspection, normal voice, TMs normal, pharynx normal. No conjunctival pallor. No photophobia, scleral icterus. Neck: Supple. Trachea midline. No tenderness, rigidity, carotid bruit, stridor , lymphadenopathy, or thyromegaly. Respiratory/Chest: Lungs CTAB. No shortness of breath, chest tenderness, respiratory distress, accessory muscle use. No crackles, rales, rhonchi, stridor , dullness. Wheezes present in the left base. Speaking full sentences. Cardiovascular: RRR. S1, S2. No JVD, murmur, bradycardia, tachycardia. Vascular Pulses: Dorsalis-Pedis (R): 2+, Dorsalis-Pedis (L): 2+ Gastrointestinal/Abdominal: Normal bowel sounds. Abdomen soft, non-distended. No tenderness or rebound tenderness. No organomegaly, pulsatile mass, guarding, hernia, hepatomegaly, splenomegaly. Integumentary: Appropriate color, dry, warm. No cyanosis, erythema, jaundice or rash Neurologic: lead investigator II-XII intact. Fully oriented, alert. Appropriate mood/affect. Motor strength 5/5. No appreciable EOM palsy, facial droop or sensory deficit. Past History - Past Medical History Allergies/Adverse Reactions: Allergies Allergy/AdvReac Type Severity Reaction Status Date / Time No Known Allergies Allergy Verified 10/30/19 16:21 Home Medications: Ambulatory Orders Famotidine [Pepcid -] 20 mg PO BID #14 tablet 09/27/19 Benzonatate [Tessalon Pearls -] 200 mg PO TID #42 cap 10/30/19 Anemia: No Asthma: No Cardiac Disorders: No COPD: No Disorders: No HTN: No Thyroid Disease: No - Surgical History Appendectomy: Yes Cholecystectomy: Yes GI Surgery: Yes (gallbladder removed) Neurologic Surgery: (cervical implanted [place]) Orthopedic Surgery: Yes - Immunization History Immunization Up to Date: Yes - Psycho Social/Smoking Cessation Hx Smoking Status: Yes Smoking History: Never smoked Have you smoked in the past 12 months: No Number of Cigarettes Smoked Daily: 4 Hx Alcohol Use: No Drug/Substance Use Hx: No *Physical Exam - Vital Signs Last Vital Signs Temp Pulse Resp BP Pulse Ox 97.9 F 76 18 123/81 99 10/30/19 16:19 10/30/19 16:19 10/30/19 16:19 10/30/19 16:19 10/30/19 16:19 ED Treatment Course - RADIOLOGY Radiology Studies Ordered: Category Date Time Status CHEST PA & LAT [RAD] Stat Radiology 10/30/19 16:49 Ordered Medical Decision Making - Medical Decision Making 10/30/19 16:51 A/P: 49-year-old woman with dry productive cough over the past 4 to 5 days. Wheezes present in the left base. Likely bronchitis as patient is afebrile and no coarse breath sounds are heard. Albuterol treatment Chest x-ray Reassess 10/30/19 17:08 X-rays read by me: Angles sharp. Lung [place] clear without infiltrates or consolidations present. Cardiac silhouette is within normal limits. No significant change from study performed 03/24/2019. 10/30/19 18:07 Patient's coughing has improved. Discharge home I discussed the physical exam findings, ancillary test results and final diagnoses with the patient. I answered all of the patient's questions. The patient was satisfied with the care received and felt comfortable with the discharge plan and treatment plan. The patient will call their primary care physician within 24 hours to arrange follow-up and will return to the Emergency Department with any new, persistent or worsening symptoms. Discharge - Discharge Information Problems reviewed: Yes Clinical Impression/Diagnosis: Bronchitis Condition: Stable Disposition: HOME - Admission No - Additional Discharge Information Prescriptions: Benzonatate [Tessalon Pearls -] 200 mg PO TID #42 cap - Follow up/Referral Referrals: ON STAFF,NOT [Primary Care Provider] - - Patient Discharge Instructions Additional Instructions: Rest, drink lots of fluids: Teas, water, soups, Pedialyte Steamy showers/seem to face break up mucus Avoid contact with others until cough resolved Lots of handwashing and good hygiene Continue [id number] medications for symptomatic relief Tylenol or Motrin for fever and pain Followup with private physician in one to 2 days as needed Return to emergency department for worsened symptoms, fevers, dehydration - Post Discharge Activity
== END 2019-10-30 18:10 | disposition home or self-care (01) ==
LOC: JERFT 16:06
PROC: 3E0F7GC Introduction of Other Therapeutic Substance into Respiratory Tract, Via Natural or Artificial Opening (ICD-10-PCS; principal; 2019-10-30)
DX: J40 Bronchitis, not specified as acute or chronic (principal); Z90.49 Acquired absence of other specified parts of digestive tract
CPT/HCPCS: 71046-TC-FY; 94640; 99281-25

== ENCOUNTER 2022-07-22 21:02 | Emergency (ER) | payer OTHER ==
[2022-07-22 21:25] VITALS: BP 115/69; PULSE 81; RESP 19; TEMP 98.1; BMI 30.9
[2022-07-22 22:33] LABS: THROAT:GRP A STREP NOT DETECTED (NOTDETECTED)
[2022-07-22] MEDS ORDERED: PENICILLIN G BENZATHINE 1,200,000 UNIT/2 ML PFS IM ONE ×2 (23:11→23:32)
[2022-07-22] MEDS ORDERED: DEXAMETHASONE SOD PHOSPHATE 10 MG/1 ML VIAL IM ONE (23:11)
[2022-07-22] MEDS ORDERED: DEXAMETHASONE SOD PHOSPHATE 10 MG/1 ML VIAL ONE (23:31)
== END 2022-07-23 00:42 | disposition home or self-care (01) ==
LOC: JER 21:02
PROC: 3E023GC Introduction of Other Therapeutic Substance into Muscle, Percutaneous Approach (ICD-10-PCS; principal; 2022-07-22)
DX: J02.9 Acute pharyngitis, unspecified (principal)
CPT/HCPCS: 0241U-QW; 71046-TC-FY; 87651; 99284-25; J1100

== ENCOUNTER 2023-05-14 04:35 | Day surgery (SDC) | payer OTHER ==
[2023-05-13 12:59] VITALS: BMI 36.2
[2023-05-14 11:34] VITALS: TEMP 98
[2023-05-14 11:45] VITALS: RESP 18
[2023-05-14 12:02] VITALS: BP 124/73; PULSE 70
== END 2023-05-14 12:19 | disposition home or self-care (01) ==
LOC: JASU-ENDO 04:35
PROVIDERS: ATTEND Internal Medicine Gastroenterology
PROC: 0DBL8ZX Excision of Transverse Colon, Via Natural or Artificial Opening Endoscopic, Diagnostic (ICD-10-PCS; principal; 2023-05-14 10:00)
DX: Z12.11 Encounter for screening for malignant neoplasm of colon (principal); D12.3 Benign neoplasm of transverse colon
CPT/HCPCS: 88305-TC

== ENCOUNTER 2023-07-15 13:19 | Emergency (ER) | payer OTHER ==
[2023-07-15 13:25] VITALS: BP 121/66; PULSE 79; RESP 18; TEMP 97.8; BMI 31.6
[2023-07-15] MEDS ORDERED: LIDOCAINE 5% TOPICAL PATCH TP ONE (14:27)
[2023-07-15] MEDS ORDERED: KETOROLAC TROMETHAMINE 30 MG/1 ML VIAL IM ONE (14:27)
[2023-07-15] MEDS ORDERED: CYCLOBENZAPRINE HCL 10 MG TABLET (FP) PO ONE (14:27)
[2023-07-15] MEDS ORDERED: KETOROLAC TROMETHAMINE 30 MG/1 ML VIAL ONE (14:43)
[2023-07-15] MEDS ORDERED: CYCLOBENZAPRINE HCL 10 MG TABLET (FP) ONE (14:43)
[2023-07-15] MEDS ORDERED: LIDOCAINE 4% PATCH TP ONE ×2 (14:49→14:54)
[2023-07-15] MEDS ORDERED: LIDOCAINE PATCH REMOVAL MC SCH (22:00)
[2023-07-15] MEDS ORDERED: LIDOCAINE PATCH REMOVAL MC ONE (22:00)
== END 2023-07-15 17:12 | disposition home or self-care (01) ==
LOC: JERFT 13:19
PROC: 3E0233Z Introduction of Anti-inflammatory into Muscle, Percutaneous Approach (ICD-10-PCS; principal; 2023-07-15)
DX: M54.2 Cervicalgia (principal); S16.1XXA Strain of muscle, fascia and tendon at neck level, initial encounter; X58.XXXA Exposure to other specified factors, initial encounter
CPT/HCPCS: 72125-TC; 99284-25

== ENCOUNTER 2023-10-09 01:01 | Emergency (ER) | payer OTHER ==
[2023-10-09 01:13] VITALS: BP 140/90; PULSE 90; RESP 20; TEMP 97.9; BMI 32.4
[2023-10-09] MEDS ORDERED: KETOROLAC TROMETHAMINE 30 MG/1 ML VIAL IM ONE (01:19)
[2023-10-09] MEDS ORDERED: KETOROLAC TROMETHAMINE 30 MG/1 ML VIAL ONE (01:20)
== END 2023-10-09 02:13 | disposition home or self-care (01) ==
LOC: JER 01:01
PROC: 3E0233Z Introduction of Anti-inflammatory into Muscle, Percutaneous Approach (ICD-10-PCS; principal; 2023-10-09)
DX: M25.562 Pain in left knee (principal)
CPT/HCPCS: 73562-TC-LT-FY; 99284-25

== ENCOUNTER 2024-11-27 08:09 | Emergency (ER) | payer OTHER ==
[2024-11-27 08:17] VITALS: BP 131/74; PULSE 70; RESP 18; TEMP 97.5; BMI 34.3
[2024-11-27] MEDS ORDERED: ACETAMINOPHEN 500 MG TABLET (FP) ONE (09:15)
[2024-11-27] MEDS ORDERED: KETOROLAC TROMETHAMINE 30 MG/1 ML VIAL ONE (09:15)
[2024-11-27] MEDS ORDERED: LIDOCAINE 4% PATCH TP ONE (09:15)
[2024-11-27] MEDS ORDERED: diazePAM 2 MG TABLET ONE (09:15)
[2024-11-27] MEDS: KETOROLAC TROMETHAMINE 30 MG/1 ML VIAL IM ONE (09:22)
[2024-11-27] MEDS: ACETAMINOPHEN 500 MG TABLET (FP) PO ONE (09:23)
[2024-11-27] MEDS: diazePAM 2 MG TABLET PO ONE (09:25)
[2024-11-27] MEDS: LIDOCAINE 4% PATCH TP ONE (09:25)
[2024-11-27 09:39] LABS: URINE APPEARANCE CLEAR; URINE BILIRUBIN NEGATIVE (NEGATIVE); URINE COLOR YELLOW; URINE GLUCOSE (UA) NEGATIVE (NEGATIVE); URINE KETONE NEGATIVE (NEGATIVE); URINE LEUK ESTERASE NEGATIVE (NEGATIVE); URINE NITRITE NEGATIVE (NEGATIVE); URINE PROTEIN NEGATIVE (NEGATIVE); URINE UROBILINOGEN 0.2 mg/dL (0.2-1.0)
[2024-11-27 09:42] LABS: HCG,QUALITATIVE URINE Negative
[2024-11-27] MEDS ORDERED: LIDOCAINE PATCH REMOVAL MC SCH (22:00)
== END 2024-11-27 13:51 | disposition home or self-care (01) ==
LOC: JER 08:09 → JERFT 08:09
PROC: 3E0233Z Introduction of Anti-inflammatory into Muscle, Percutaneous Approach (ICD-10-PCS; principal; 2024-11-27)
DX: M54.50 Low back pain, unspecified (principal)
CPT/HCPCS: 72131-TC; 81003; 84703; 87086; 99285-25